=== PATIENT | male | born 1940 | race Caucasian/White ===

== ENCOUNTER 2017-10-14 05:29 | Inpatient (IN) | payer OTHER ==
[2017-10-14] MEDS ORDERED: Gabapentin 300 MG Cap PO ONE (06:00)
[2017-10-14] MEDS ORDERED: Scopolamine 1.5 MG Transdermal Patch TOP ONE (06:00)
[2017-10-14] MEDS: Lactated Ringers 1,000 ML IV SCH ×2 (06:38→13:35)
[2017-10-14] MEDS ORDERED: Gentamicin 40 MG/ML 2 ML Vial ONE (06:38)
[2017-10-14] MEDS ORDERED: Povidone-Iodine 10% Soln 118.25 ML Bottle ONE (06:38)
[2017-10-14] MEDS ORDERED: Vancomycin 1 GM SDV ONE (07:06)
[2017-10-14] MEDS ORDERED: Midazolam 1 MG/ML 2 ML SDV ONE ×3 (07:13→09:27)
[2017-10-14] MEDS ORDERED: fentaNYL 100 MCG/2 ML SDV ONE ×3 (07:13→10:04)
[2017-10-14] MEDS ORDERED: Propofol 200 MG/20 ML SDV ONE ×3 (07:13→08:29)
[2017-10-14] MEDS ORDERED: Clindamycin Phosphate 900 MG in Sodium Chloride 0.9% 100 ML IV ONE (07:30)
[2017-10-14] MEDS ORDERED: Ropivacaine 49.25 ML, Ketorolac 30 MG, EPINEPHrine 0.5 MG, cloNIDine 80 MCG, Sodium Chl... INJECT ONE ×5 (07:45)
[2017-10-14] MEDS ORDERED: Ketamine 500 MG/5 ML MDV IV SCH (07:45)
[2017-10-14] MEDS ORDERED: Alum Hydrox/Mag Hydrox/Simeth 360 ML, Lidocaine 2% 60 ML PO SCH ×2 (08:00)
[2017-10-14] MEDS ORDERED: Acetylcysteine 600 MG, Water For Injection,Sterile 57 ML ONE ×2 (08:00)
[2017-10-14] MEDS ORDERED: Lactated Ringers 1,000 ML ONE (08:20)
[2017-10-14] MEDS ORDERED: oxyCODONE 5 MG Tab PO PRN (10:29)
[2017-10-14] MEDS ORDERED: Sennosides 8.6 MG Tab PO PRN (10:29)
[2017-10-14] MEDS ORDERED: Naloxone 0.4 MG/ML SDV IVPUSH PRN ×2 (10:29→11:53)
[2017-10-14] MEDS ORDERED: traMADol 50 MG Tab PO PRN (10:29)
[2017-10-14] MEDS ORDERED: Morphine 2 MG/ML Syringe IVPUSH PRN (10:29)
[2017-10-14] MEDS ORDERED: Ketorolac 30 MG/ML SDV IVPUSH PRN (10:29)
[2017-10-14] MEDS ORDERED: Zolpidem 5 MG Tab PO PRN (10:29)
[2017-10-14] MEDS ORDERED: Magnesium Hydroxide 400 MG/5 ML Susp 30 ML Cup PO PRN (10:29)
[2017-10-14] MEDS ORDERED: diphenhydrAMINE 50 MG/ML SDV IVPUSH PRN ×2 (10:29→11:53)
[2017-10-14] MEDS ORDERED: Ondansetron 4 MG/2 ML SDV IVPUSH PRN (10:29)
[2017-10-14] MEDS ORDERED: Aluminum Hydroxide/Magnesium Hydroxide/Simethicone Susp 30 ML Cup PO PRN (10:29)
[2017-10-14] MEDS ORDERED: Bisacodyl 5 MG Tab PO PRN (10:29)
[2017-10-14] MEDS ORDERED: Albuterol 8 GM Inhaler INH PRN (10:33)
[2017-10-14] MEDS ORDERED: Ketoconazole 2% Crm 30 GM Tube TOP PRN (10:33)
[2017-10-14] MEDS ORDERED: tiZANidine 4 MG Tab PO PRN (10:33)
[2017-10-14] MEDS ORDERED: Acetaminophen 1,000 MG in Premix Bag 1 BAG IV ONE (10:40)
--- NOTE | 2017-10-14 12:22 | CR ---
Knee 1V or 2V Lt FINDINGS: The patient is status post knee arthroplasty. The prosthetic components appear well-aligned and seated. There is a small amount of air and fluid within the joint space. IMPRESSION: Status post knee arthroplasty without evidence for complication.
[2017-10-14] MEDS: oxyCODONE 5 MG Tab PO PRN ×2 (13:03→19:24)
--- NOTE | 2017-10-14 13:08 | OR ---
DATE OF PROCEDURE: 10/14/2017 PREOPERATIVE DIAGNOSIS: Left knee failed total knee arthroplasty. POSTOPERATIVE DIAGNOSIS: Left knee failed total knee arthroplasty. PROCEDURE: Left knee rotating hinge revision knee arthroplasty. SCRAP CARRIER: Jasmina Christensen NP. Physician budget assistant, Jasmina Christensen NP, played an essential role in assisting in this case, helping to position the patient, retract structures as needed, as well as suturing and cutting sutures as indicated. Her presence improved patient's safety and decreased operative time. ANESTHESIA: Spinal plus conscious sedation. FLUID: Lactated Ringer solution. ESTIMATED BLOOD LOSS: 150 mL. COMPLICATIONS: None. SPECIMEN: Anaerobic and anaerobic cultures. DISCHARGE DISPOSITION: Stable to PACU. INSTRUMENTATION: Cathy RH knee size E, rotating hinge femur size 5, rotating hinge tibia, two 15 mm distal augments, 23 mm rotating hinge polyethylene, and 18 x 145 femoral stem and a 15 x 30 tibial stem. INDICATIONS FOR PROCEDURE: The patient was seen preoperatively in the clinic. He had a primary total knee arthroplasty approximately 7 years ago, and 3 weeks after the procedure, he felt a pop and ever since has not done well. He did not see the surgeon afterwards. 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 I called him back in and also examined his MCL, which was not competent. Therefore, he was consented for the above procedure. Risks and benefits of the procedure were explained to the patient. Informed consent was obtained. DETAILS OF PROCEDURE: The patient was seen preoperatively by myself and the anesthesia staff in the preoperative holding area where the operative site was marked. He was brought to the operative suite by the anesthesia staff where spinal anesthesia plus conscious sedation was administered. A well-padded tourniquet was placed on the left thigh, and left lower extremity was then prepped and draped in a sterile manner. Time-out was called identifying the correct patient, correct procedure, the correct site, and antibiotics had begun within appropriate time. The left lower extremity was exsanguinated and tourniquet was raised to 300 mmHg for 111 minutes and let down during cementing. A midline incision was then made from the tibial tubercle approximately three and half fingerbreadths proximal to the patella down to the deep fascia. I then made a medial parapatellar arthrotomy and then exposed the medial tibia with the Bovie. Bleeding during the case was controlled with Bovie electrocautery and an Aquamantys unit. I then performed a full synovectomy, removed the infrapatellar fat pad, removed any extra bone overgrowth near the patella, as well as any soft tissue overgrowth. I then removed the polyethylene, and then using a reciprocating saw, I undermined the femoral and tibial components and then tapped those out. After that had been accomplished, I then took my time to remove any extra cement within the tibial canal. I then sequentially reamed from 9 to 15 mm reaming in the tibia. I then left that in and then applied my extramedullary guide and took approximately 2 mm of proximal tibia with the saw. After that had been accomplished, I applied the tibial base plate and then prepped tibia with reaming and broach. We then inserted a trial tibia which had a good fit. I then applied a trial E femur, which appeared to have a good fit. We then reamed the femur from 9 to 18 mm and then leaving the reamer in, applied our extramedullary distal femoral cutting guide, cut approximately 2 mm off, then applied E chamfer block, tapped that in place with rotation with the epicondylar axis, and then made my anterior-posterior chamfer cuts. I then applied my tibia with a stem trial and poly. We then trailed up to about a 20, and during this time, we put on distal augments of 10 on the femur. We did not have 15 augments but felt this was going to be a good fit, so we then removed all of our components and then copiously irrigated with saline. I applied some iodine, washed off the trial components because we used the final femoral components, and then, we cemented the tibia in place first and then cemented the femur in place and applied a 23 polyethylene which provided excellent stability. We then allowed the cement to cure in full extension with warm water and let down the tourniquet at 111 minutes. We then used the Bovie and Aquamantys unit to control some extra bleeding. After the cement had dried, we removed our polyethylene trial, and copiously irrigated with saline and then removed any extra cement. Then, we then applied our final polyethylene 23 mm, which provided excellent range of motion with full extension and 135 degrees of flexion and then closed with two #5 Ethibond and 3-0 Stratafix and skin ivan. A sterile dressing was placed and the patient was transferred to his hospital bed, and then taken to the PACU in stable condition. Kyle Schilling DO /[id number]
[2017-10-14] MEDS: Gabapentin 300 MG Cap PO SCH ×2 (13:57→21:47)
[2017-10-14] MEDS ORDERED: POTASSIUM CHLORIDE 30 MEQ PO SCH ×2 (14:00)
[2017-10-14] MEDS: Clindamycin Phosphate 600 MG in Sodium Chloride 0.9% 100 ML IV SCH ×2 (15:23→19:29)
[2017-10-14] MEDS: Ketorolac 30 MG/ML SDV IVPUSH PRN (15:59)
[2017-10-14] MEDS: Potassium Chloride 10 MEQ Cap.ER PO SCH (17:46)
[2017-10-14] MEDS ORDERED: Docusate Sodium 100 MG Cap PO SCH (21:00)
[2017-10-14] MEDS ORDERED: Sennosides 8.6 MG Tab PO SCH (21:00)
[2017-10-14] MEDS ORDERED: Non-Formulary Medication 1 Each (Cholecalciferol (Vitamin D3) [Vitamin D3] 1 TAB) PO SCH ×2 (21:00)
[2017-10-14] MEDS ORDERED: Doxycycline 100 MG Cap PO SCH ×2 (21:00)
[2017-10-14] MEDS: Cholecalciferol (Vitamin D3) 1,000 Unit Tab PO SCH (21:46)
[2017-10-14] MEDS: DOXYCYCLINE 50 MG PO SCH (21:47)
[2017-10-14] MEDS: Sennosides 8.6 MG Tab PO SCH (21:47)
[2017-10-14] MEDS: Docusate Sodium 100 MG Cap PO SCH (21:47)
[2017-10-15] MEDS: Clindamycin Phosphate 600 MG in Sodium Chloride 0.9% 100 ML IV SCH (01:20)
[2017-10-15] MEDS: oxyCODONE 5 MG Tab PO PRN ×2 (02:33→08:20)
[2017-10-15] MEDS: Potassium Chloride 10 MEQ Cap.ER PO SCH ×3 (07:32→17:02)
[2017-10-15] MEDS: Levothyroxine 75 MCG Tab PO SCH (07:32)
[2017-10-15] MEDS: Pantoprazole 40 MG Tab.CR PO SCH (07:32)
[2017-10-15] MEDS: Docusate Sodium 100 MG Cap PO SCH ×2 (08:17→21:51)
[2017-10-15] MEDS: Bisacodyl 5 MG Tab PO SCH (08:17)
[2017-10-15] MEDS: Loratadine 10 MG Tab PO SCH (08:17)
[2017-10-15] MEDS: Hydrocortisone 2.5% Crm 30 GM Tube TOP SCH (08:18)
[2017-10-15] MEDS: Aspirin 325 MG Tab.EC PO SCH (08:18)
[2017-10-15] MEDS: Gabapentin 300 MG Cap PO SCH ×3 (08:19→21:52)
[2017-10-15] MEDS: Finasteride 5 MG Tab PO SCH (08:21)
[2017-10-15] MEDS: DOXYCYCLINE 50 MG PO SCH ×2 (08:21→22:53)
[2017-10-15] MEDS: Sodium Chloride 0.9% 10 ML Syringe FLUSH SCH (08:22)
[2017-10-15] MEDS: Sennosides 8.6 MG Tab PO SCH ×2 (08:22→21:51)
[2017-10-15] MEDS: Atenolol 50 MG Tab PO SCH (08:22)
[2017-10-15] MEDS: Cyanocobalamin (Vitamin B12) 1,000 MCG Tab PO SCH (08:23)
[2017-10-15] MEDS: Multivitamins with Iron/Calcium/Folic Acid/Minerals Tab PO SCH (08:23)
[2017-10-15] MEDS: Cholecalciferol (Vitamin D3) 1,000 Unit Tab PO SCH ×2 (08:23→21:51)
[2017-10-15] MEDS ORDERED: Non-Formulary Medication 1 Each (Multivitamin With Minerals [Multiple Vitamin] 1 TAB) PO SCH ×2 (09:00)
[2017-10-15] MEDS ORDERED: Sodium Chloride 0.9% 10 ML Syringe FLUSH SCH (09:00)
[2017-10-15] MEDS ORDERED: FEXOFENADINE PO SCH ×2 (09:00)
[2017-10-15] MEDS ORDERED: Bisacodyl 5 MG Tab PO SCH (09:00)
[2017-10-15] MEDS ORDERED: LANSOPRAZOLE PO SCH ×2 (09:00)
[2017-10-15] MEDS ORDERED: Melatonin 3 MG Tab PO PRN (09:54)
[2017-10-15] MEDS ORDERED: Aspirin 325 MG Tab.EC PO SCH (10:29)
[2017-10-15] MEDS: Acetaminophen/oxyCODONE 325-5 MG Tab PO PRN (11:44)
[2017-10-15] MEDS: traMADol 50 MG Tab PO PRN ×2 (14:13→21:54)
[2017-10-15] MEDS: Tamsulosin 0.4 MG Cap.ER PO SCH (17:02)
[2017-10-16] MEDS: Levothyroxine 75 MCG Tab PO SCH (08:30)
[2017-10-16] MEDS: Loratadine 10 MG Tab PO SCH (08:31)
[2017-10-16] MEDS: Potassium Chloride 10 MEQ Cap.ER PO SCH ×3 (08:31→16:57)
[2017-10-16] MEDS: Pantoprazole 40 MG Tab.CR PO SCH (08:31)
[2017-10-16] MEDS: Tamsulosin 0.4 MG Cap.ER PO SCH ×2 (08:31→16:57)
[2017-10-16] MEDS: traMADol 50 MG Tab PO PRN (08:40)
[2017-10-16] MEDS: Docusate Sodium 100 MG Cap PO SCH ×2 (08:41→20:34)
[2017-10-16] MEDS: Aspirin 325 MG Tab.EC PO SCH (08:42)
[2017-10-16] MEDS: Bisacodyl 5 MG Tab PO SCH (08:42)
[2017-10-16] MEDS: Finasteride 5 MG Tab PO SCH (08:44)
[2017-10-16] MEDS: Gabapentin 300 MG Cap PO SCH ×3 (08:44→20:34)
[2017-10-16] MEDS: Sodium Chloride 0.9% 10 ML Syringe FLUSH SCH (08:45)
[2017-10-16] MEDS: Sennosides 8.6 MG Tab PO SCH ×2 (08:46→20:34)
[2017-10-16] MEDS: Cholecalciferol (Vitamin D3) 1,000 Unit Tab PO SCH ×2 (08:47→20:35)
[2017-10-16] MEDS: Cyanocobalamin (Vitamin B12) 1,000 MCG Tab PO SCH (08:47)
[2017-10-16] MEDS: Atenolol 50 MG Tab PO SCH (08:47)
[2017-10-16] MEDS: Multivitamins with Iron/Calcium/Folic Acid/Minerals Tab PO SCH (08:47)
[2017-10-16] MEDS: Hydrocortisone 2.5% Crm 30 GM Tube TOP SCH (09:10)
[2017-10-16] MEDS: DOXYCYCLINE 50 MG PO SCH (09:47)
--- NOTE | 2017-10-16 13:30 | PCM.PN ---
- General Info Date of Service: 10/15/17 Admission Dx/Problem (Free Text): patient is status postop day 1 of a knee revision. He is doing very well. He continues to have his Covarrubias which I would like removed today. He is ambulating short distances at this time. He has no nausea. His pain is under control with oral pain medication. Functional Status: Reports: Pain Controlled, Tolerating Diet, Ambulating, Urinating - Patient Data Vitals - Most Recent: Last Vital Signs Temp 38.1 C 10/16/17 11:05 Pulse 94 10/16/17 11:05 Resp 25 H 10/16/17 11:05 BP 111/73 10/16/17 08:47 Pulse Ox 94 L 10/16/17 11:05 Weight - Most Recent: 229 lb 15.991 oz I&O - Last 24 Hours: Intake & Output 10/15/17 10/16/17 10/16/17 22:59 06:59 14:59 Intake Total 780 454 0011 Output Total 450 250 350 Balance 170 250 790 Pawel Results Last 24 Hours: Microbiology 10/14/17 09:43 Gram Stain - Final Knee, Left Wound Culture - Preliminary NO GROWTH AFTER 2 DAYS Med Orders - Current: Current Medications Al Hydroxide/Mg Hydroxide (Mag-Al Plus) 30 ml PO Q4H PRN PRN Reason: Constipation Albuterol (Ventolin Hfa) 0 gm INH BID PRN PRN Reason: Shortness of Breath Aspirin (Ecotrin) 325 mg PO DAILY [facility] Last Admin: 10/16/17 08:42 Dose: 325 mg Atenolol (Tenormin) 50 mg PO DAILY [facility] Last Admin: 10/16/17 08:47 Dose: 50 mg Bisacodyl (Dulcolax) 10 mg PO DAILY [facility] Last Admin: 10/16/17 08:42 Dose: 10 mg Cholecalciferol (Vitamin D3) 2,000 units PO BID [facility] Last Admin: 10/16/17 08:47 Dose: 2,000 units Cyanocobalamin (Vitamin B12) 1,000 mcg PO DAILY [facility] Last Admin: 10/16/17 08:47 Dose: 1,000 mcg Diphenhydramine HCl (Benadryl) 25 mg IVPUSH Q4H PRN PRN Reason: Itching Docusate Sodium (Colace) 100 mg PO BID [facility] Last Admin: 10/16/17 08:41 Dose: 100 mg Finasteride (Proscar) 5 mg PO DAILY [facility] Last Admin: 10/16/17 08:44 Dose: 5 mg Gabapentin (Neurontin) 900 mg PO TID [facility] Last Admin: 10/16/17 13:18 Dose: 900 mg Hydrocortisone (Hydrocortisone 2.5% Crm) 0 gm TOP DAILY [facility] Last Admin: 10/16/17 09:10 Dose: 1 applic Lactated Ringer's (Ringers, Lactated) 1,000 mls @ 100 mls/hr IV ASDIRECTED [facility] Last Admin: 10/14/17 13:35 Dose: 100 mls/hr Ketoconazole (Nizoral 2% Crm) 0 gm TOP ASDIRECTED PRN PRN Reason: Itching Ketorolac Tromethamine (Toradol) 15 mg IVPUSH Q8H PRN PRN Reason: Pain Stop: 10/19/17 10:29 Last Admin: 10/14/17 15:59 Dose: 15 mg Levothyroxine Sodium (Levothyroxine) 75 mcg PO ACBREAKFAST [facility] Last Admin: 10/16/17 08:30 Dose: 75 mcg Loratadine (Claritin) 10 mg PO DAILY [facility] Last Admin: 10/16/17 08:31 Dose: 10 mg Magnesium Hydroxide (Milk Of Magnesia) 30 ml PO BID PRN PRN Reason: Constipation Melatonin (Melatonin) 9 mg PO BEDTIME PRN PRN Reason: Sleep Metronidazole (Metronidazole 0.75% Cream) 0 gm TOP BID PRN PRN Reason: Itching Morphine Sulfate (Morphine) 2 mg IVPUSH Q2H PRN PRN Reason: Pain Multivitamins/Minerals (Thera M Plus) 1 tab PO DAILY [facility] Last Admin: 10/16/17 08:47 Dose: 1 tab Doxycycline 50mg Cap 0 each PO BID [facility] Last Admin: 10/16/17 09:47 Dose: 1 each Ondansetron HCl (Zofran) 8 mg IVPUSH Q4H PRN PRN Reason: Nausea/Vomiting Oxycodone/Acetaminophen (Percocet 325-5 Mg) 2 tab PO Q4H PRN PRN Reason: Pain Last Admin: 10/15/17 11:44 Dose: 2 tab Pantoprazole Sodium (Protonix) 40 mg PO ACBREAKFAST [facility] Last Admin: 10/16/17 08:31 Dose: 40 mg Potassium Chloride (Potassium Chloride) 30 meq PO TIDMEALS [facility] Last Admin: 10/16/17 11:54 Dose: 30 meq Senna (Senna) 8.6 mg PO BID [facility] Last Admin: 10/16/17 08:46 Dose: 8.6 mg Sodium Chloride (Saline Flush) 10 ml FLUSH DAILY [facility] Last Admin: 10/16/17 08:45 Dose: 10 ml [facility] Last Admin: 10/16/17 08:31 Dose: 0.4 mg Tizanidine HCl (Zanaflex) 4 mg PO BID PRN PRN Reason: Muscle Spasm Tramadol HCl (Ultram) 100 mg PO Q6H PRN PRN Reason: Pain Last Admin: 10/16/17 08:40 Dose: 100 mg Discontinued Medications Aspirin (Ecotrin) 325 mg PO DAILY [facility] Bisacodyl (Dulcolax) 10 mg PO DAILY PRN PRN Reason: Constipation Bisacodyl (Dulcolax) 10 mg PO DAILY [facility] Ropivacaine 49.25 ml/Ketorolac Tromethamine 30 mg/Epinephrine HCl 0.5 mg/ Clonidine HCl 80 mcg/ Sodium Chloride 48.45 ml 0 ml INJECT ONETIME ONE Stop: 10/14/17 07:46 Last Admin: 10/14/17 08:13 Dose: 100 ml Diphenhydramine HCl (Benadryl) 25 mg IVPUSH Q4H PRN PRN Reason: Itching Docusate Sodium (Colace) 100 mg PO BID [facility] Doxycycline Hyclate (Vibramycin) 50 mg PO BID [facility] Fentanyl (Sublimaze) Confirm Administered Dose 100 mcg .ROUTE .STK-MED ONE Stop: 10/14/17 07:14 Fentanyl (Sublimaze) Confirm Administered Dose 100 mcg .ROUTE .STK-MED ONE Stop: 10/14/17 09:48 Fentanyl (Sublimaze) Confirm Administered Dose 100 mcg .ROUTE .STK-MED ONE Stop: 10/14/17 10:05 Gabapentin (Neurontin) 300 mg PO ONETIME ONE Stop: 10/14/17 06:01 Last Admin: 10/14/17 05:54 Dose: 300 mg Gentamicin Sulfate (Gentamicin) Confirm Administered Dose 240 mg .ROUTE .STK- MED ONE Stop: 10/14/17 06:39 Last Admin: 10/14/17 08:01 Dose: 240 mg Clindamycin Phosphate 900 mg/ (Sodium Chloride) 106 mls @ 200 mls/hr IV ONETIME ONE Stop: 10/14/17 08:01 Last Admin: 10/14/17 07:20 Dose: 200 mls/hr Lactated Ringer's (Ringers, Lactated) Confirm Administered Dose 1,000 mls @ as directed .ROUTE .STK-MED ONE Stop: 10/14/17 08:21 Acetaminophen 1,000 mg/ Premix 100 mls @ 400 mls/hr IV NOW ONE Stop: 10/14/17 10:54 Last Admin: 10/14/17 10:41 Dose: 400 mls/hr Clindamycin Phosphate 600 mg/ (Sodium Chloride) 54 mls @ 100 mls/hr IV Q6H [facility] Stop: 10/14/17 23:03 Last Admin: 10/14/17 19:45 Dose: Not Given Clindamycin Phosphate 600 mg/ (Sodium Chloride) 104 mls @ 192.593 mls/hr IV Q6H [facility] Stop: 10/15/17 01:33 Last Admin: 10/15/17 01:20 Dose: 192.593 mls/hr Ketamine HCl (Ketalar) 35 mg IV ASDIRECTED [facility] Ketorolac Tromethamine (Toradol) 15 mg IVPUSH Q8H PRN PRN Reason: Pain Stop: 10/19/17 10:29 Midazolam HCl (Versed 1 Mg/Ml) Confirm Administered Dose 2 mg .ROUTE .STK-MED ONE Stop: 10/14/17 07:14 Midazolam HCl (Versed 1 Mg/Ml) Confirm Administered Dose 2 mg .ROUTE .STK-MED ONE Stop: 10/14/17 08:20 Midazolam HCl (Versed 1 Mg/Ml) Confirm Administered Dose 2 mg .ROUTE .STK-MED ONE Stop: 10/14/17 09:28 Naloxone HCl (Narcan) 0.1 mg IVPUSH ONETIME PRN PRN Reason: Oversedation Naloxone HCl (Narcan) 0.1 mg IVPUSH ASDIRECTED PRN PRN Reason: Oversedation Stop: 10/15/17 02:00 Non-Formulary Medication (Cholecalciferol (Vitamin D3) [Vitamin D3]) 1 tab PO BID [facility] Non-Formulary Medication (Fexofenadine [Liv]) 1 tab PO DAILY [facility] Non-Formulary Medication (Lansoprazole [Prevacid]) 1 cap PO DAILY [facility] Non-Formulary Medication (Multivitamin With Minerals [Multiple Vitamin]) 1 tab PO DAILY [facility] Non-Formulary Medication (Potassium Chloride [Klor-Con 10]) 30 meq PO TID [facility] Oxycodone HCl (Oxycodone) 10 mg PO Q4H PRN PRN Reason: Pain Stop: 10/15/17 10:29 Oxycodone HCl (Oxycodone) 10 mg PO Q4H PRN PRN Reason: Pain Stop: 10/15/17 10:29 Last Admin: 10/15/17 08:20 Dose: 10 mg Povidone Iodine (Betadine 10% Soln) Confirm Administered Dose 1 ml .ROUTE .STK- MED ONE Stop: 10/14/17 06:39 Last Admin: 10/14/17 08:02 Dose: 40 ml Propofol (Diprivan 20 Ml) Confirm Administered Dose 200 mg .ROUTE .STK-MED ONE Stop: 10/14/17 07:14 Propofol (Diprivan 20 Ml) Confirm Administered Dose 200 mg .ROUTE .STK-MED ONE Stop: 10/14/17 08:19 Propofol (Diprivan 20 Ml) Confirm Administered Dose 200 mg .ROUTE .STK-MED ONE Stop: 10/14/17 08:30 Scopolamine (Transderm-Scop) 1.5 mg TOP ONETIME ONE Stop: 10/14/17 06:01 Last Admin: 10/14/17 05:54 Dose: 1.5 mg Senna (Senna) 8.6 mg PO BID PRN PRN Reason: Constipation Senna (Senna) 8.6 mg PO BID [facility] Sodium Chloride (Saline Flush) 10 ml FLUSH DAILY [facility] Tramadol HCl (Ultram) 100 mg PO Q6H PRN PRN Reason: Pain Vancomycin HCl (Vancomycin) Confirm Administered Dose 2 gm .ROUTE .STK-MED ONE Stop: 10/14/17 07:07 Last Admin: 10/14/17 08:01 Dose: 1 gm Zolpidem Tartrate (Ambien) 5 mg PO BEDTIME PRN PRN Reason: Sleep - Exam General: Alert, Oriented Extremities: Normal Inspection, No Pedal Edema, Normal Capillary Refill, Joint Swelling, Limited Range of Motion Peripheral Pulses: 2+: Dorsalis Pedis (L), Dorsalis Pedis (R) Skin: Warm, Dry, Intact Wound/Incisions: Healing Well, Dressing Dry and Intact Neurological: No New Focal Deficit Psy/Mental Status: Alert - Problem List Review Problem List Initiated/Reviewed/Updated: Yes - My Orders Last 24 Hours: My Active Orders 10/15/17 17:30 Tamsulosin [Flomax] 0.4 mg PO BIDPC - Plan Plan:: At this time patient will continue with PT OT. He will plan to discharge in the next few days. We'll put his Covarrubias out today and have them ambulating as much as possible. We will continue with oral pain medication.
--- NOTE | 2017-10-16 13:32 | PCM.PN ---
- General Info Date of Service: 10/16/17 Admission Dx/Problem (Free Text): Patient is status postop day 2 of a knee revision. He is doing very well. Patient continues to ambulate. He is still concerned with having the strength to go home today. He will continue to improve. - Patient Data Vitals - Most Recent: Last Vital Signs Temp 38.1 C 10/16/17 11:05 Pulse 94 10/16/17 11:05 Resp 25 H 10/16/17 11:05 BP 111/73 10/16/17 08:47 Pulse Ox 94 L 10/16/17 11:05 Weight - Most Recent: 229 lb 15.991 oz I&O - Last 24 Hours: Intake & Output 10/15/17 10/16/17 10/16/17 22:59 06:59 14:59 Intake Total 889 760 7444 Output Total 450 250 350 Balance 170 250 790 Pawel Results Last 24 Hours: Microbiology 10/14/17 09:43 Gram Stain - Final Knee, Left Wound Culture - Preliminary NO GROWTH AFTER 2 DAYS Med Orders - Current: Current Medications Al Hydroxide/Mg Hydroxide (Mag-Al Plus) 30 ml PO Q4H PRN PRN Reason: Constipation Albuterol (Ventolin Hfa) 0 gm INH BID PRN PRN Reason: Shortness of Breath Aspirin (Ecotrin) 325 mg PO DAILY [facility] Last Admin: 10/16/17 08:42 Dose: 325 mg Atenolol (Tenormin) 50 mg PO DAILY [facility] Last Admin: 10/16/17 08:47 Dose: 50 mg Bisacodyl (Dulcolax) 10 mg PO DAILY [facility] Last Admin: 10/16/17 08:42 Dose: 10 mg Cholecalciferol (Vitamin D3) 2,000 units PO BID [facility] Last Admin: 10/16/17 08:47 Dose: 2,000 units Cyanocobalamin (Vitamin B12) 1,000 mcg PO DAILY [facility] Last Admin: 10/16/17 08:47 Dose: 1,000 mcg Diphenhydramine HCl (Benadryl) 25 mg IVPUSH Q4H PRN PRN Reason: Itching Docusate Sodium (Colace) 100 mg PO BID [facility] Last Admin: 10/16/17 08:41 Dose: 100 mg Finasteride (Proscar) 5 mg PO DAILY [facility] Last Admin: 10/16/17 08:44 Dose: 5 mg Gabapentin (Neurontin) 900 mg PO TID [facility] Last Admin: 10/16/17 13:18 Dose: 900 mg Hydrocortisone (Hydrocortisone 2.5% Crm) 0 gm TOP DAILY [facility] Last Admin: 10/16/17 09:10 Dose: 1 applic Lactated Ringer's (Ringers, Lactated) 1,000 mls @ 100 mls/hr IV ASDIRECTED [facility] Last Admin: 10/14/17 13:35 Dose: 100 mls/hr Ketoconazole (Nizoral 2% Crm) 0 gm TOP ASDIRECTED PRN PRN Reason: Itching Ketorolac Tromethamine (Toradol) 15 mg IVPUSH Q8H PRN PRN Reason: Pain Stop: 10/19/17 10:29 Last Admin: 10/14/17 15:59 Dose: 15 mg Levothyroxine Sodium (Levothyroxine) 75 mcg PO ACBREAKFAST [facility] Last Admin: 10/16/17 08:30 Dose: 75 mcg Loratadine (Claritin) 10 mg PO DAILY [facility] Last Admin: 10/16/17 08:31 Dose: 10 mg Magnesium Hydroxide (Milk Of Magnesia) 30 ml PO BID PRN PRN Reason: Constipation Melatonin (Melatonin) 9 mg PO BEDTIME PRN PRN Reason: Sleep Metronidazole (Metronidazole 0.75% Cream) 0 gm TOP BID PRN PRN Reason: Itching Morphine Sulfate (Morphine) 2 mg IVPUSH Q2H PRN PRN Reason: Pain Multivitamins/Minerals (Thera M Plus) 1 tab PO DAILY [facility] Last Admin: 10/16/17 08:47 Dose: 1 tab Doxycycline 50mg Cap 0 each PO BID [facility] Last Admin: 10/16/17 09:47 Dose: 1 each Ondansetron HCl (Zofran) 8 mg IVPUSH Q4H PRN PRN Reason: Nausea/Vomiting Oxycodone/Acetaminophen (Percocet 325-5 Mg) 2 tab PO Q4H PRN PRN Reason: Pain Last Admin: 10/15/17 11:44 Dose: 2 tab Pantoprazole Sodium (Protonix) 40 mg PO ACBREAKFAST [facility] Last Admin: 10/16/17 08:31 Dose: 40 mg Potassium Chloride (Potassium Chloride) 30 meq PO TIDMEALS [facility] Last Admin: 10/16/17 11:54 Dose: 30 meq Senna (Senna) 8.6 mg PO BID [facility] Last Admin: 10/16/17 08:46 Dose: 8.6 mg Sodium Chloride (Saline Flush) 10 ml FLUSH DAILY [facility] Last Admin: 10/16/17 08:45 Dose: 10 ml [facility]ams[facility]osin [facility] ([facility]) [facility] Last Admin: 10/16/17 08:31 Dose: 0.4 mg Tizanidine HCl (Zanaflex) 4 mg PO BID PRN PRN Reason: Muscle Spasm Tramadol HCl (Ultram) 100 mg PO Q6H PRN PRN Reason: Pain Last Admin: 10/16/17 08:40 Dose: 100 mg Discontinued Medications Aspirin (Ecotrin) 325 mg PO DAILY [facility] Bisacodyl (Dulcolax) 10 mg PO DAILY PRN PRN Reason: Constipation Bisacodyl (Dulcolax) 10 mg PO DAILY [facility] Ropivacaine 49.25 ml/Ketorolac Tromethamine 30 mg/Epinephrine HCl 0.5 mg/ Clonidine HCl 80 mcg/ Sodium Chloride 48.45 ml 0 ml INJECT ONETIME ONE Stop: 10/14/17 07:46 Last Admin: 10/14/17 08:13 Dose: 100 ml Diphenhydramine HCl (Benadryl) 25 mg IVPUSH Q4H PRN PRN Reason: Itching Docusate Sodium (Colace) 100 mg PO BID [facility] Doxycycline Hyclate (Vibramycin) 50 mg PO BID [facility] Fentanyl (Sublimaze) Confirm Administered Dose 100 mcg .ROUTE .STK-MED ONE Stop: 10/14/17 07:14 Fentanyl (Sublimaze) Confirm Administered Dose 100 mcg .ROUTE .STK-MED ONE Stop: 10/14/17 09:48 Fentanyl (Sublimaze) Confirm Administered Dose 100 mcg .ROUTE .STK-MED ONE Stop: 10/14/17 10:05 Gabapentin (Neurontin) 300 mg PO ONETIME ONE Stop: 10/14/17 06:01 Last Admin: 10/14/17 05:54 Dose: 300 mg Gentamicin Sulfate (Gentamicin) Confirm Administered Dose 240 mg .ROUTE .STK- MED ONE Stop: 10/14/17 06:39 Last Admin: 10/14/17 08:01 Dose: 240 mg Clindamycin Phosphate 900 mg/ (Sodium Chloride) 106 mls @ 200 mls/hr IV ONETIME ONE Stop: 10/14/17 08:01 Last Admin: 10/14/17 07:20 Dose: 200 mls/hr Lactated Ringer's (Ringers, Lactated) Confirm Administered Dose 1,000 mls @ as directed .ROUTE .STK-MED ONE Stop: 10/14/17 08:21 Acetaminophen 1,000 mg/ Premix 100 mls @ 400 mls/hr IV NOW ONE Stop: 10/14/17 10:54 Last Admin: 10/14/17 10:41 Dose: 400 mls/hr Clindamycin Phosphate 600 mg/ (Sodium Chloride) 54 mls @ 100 mls/hr IV Q6H [facility] Stop: 10/14/17 23:03 Last Admin: 10/14/17 19:45 Dose: Not Given Clindamycin Phosphate 600 mg/ (Sodium Chloride) 104 mls @ 192.593 mls/hr IV Q6H [facility] Stop: 10/15/17 01:33 Last Admin: 10/15/17 01:20 Dose: 192.593 mls/hr Ketamine HCl (Ketalar) 35 mg IV ASDIRECTED [facility] Ketorolac Tromethamine (Toradol) 15 mg IVPUSH Q8H PRN PRN Reason: Pain Stop: 10/19/17 10:29 Midazolam HCl (Versed 1 Mg/Ml) Confirm Administered Dose 2 mg .ROUTE .STK-MED ONE Stop: 10/14/17 07:14 Midazolam HCl (Versed 1 Mg/Ml) Confirm Administered Dose 2 mg .ROUTE .STK-MED ONE Stop: 10/14/17 08:20 Midazolam HCl (Versed 1 Mg/Ml) Confirm Administered Dose 2 mg .ROUTE .STK-MED ONE Stop: 10/14/17 09:28 Naloxone HCl (Narcan) 0.1 mg IVPUSH ONETIME PRN PRN Reason: Oversedation Naloxone HCl (Narcan) 0.1 mg IVPUSH ASDIRECTED PRN PRN Reason: Oversedation Stop: 10/15/17 02:00 Non-Formulary Medication (Cholecalciferol (Vitamin D3) [Vitamin D3]) 1 tab PO BID [facility] Non-Formulary Medication (Fexofenadine [Liv]) 1 tab PO DAILY [facility] Non-Formulary Medication (Lansoprazole [Prevacid]) 1 cap PO DAILY [facility] Non-Formulary Medication (Multivitamin With Minerals [Multiple Vitamin]) 1 tab PO DAILY [facility] Non-Formulary Medication (Potassium Chloride [Klor-Con 10]) 30 meq PO TID [facility] Oxycodone HCl (Oxycodone) 10 mg PO Q4H PRN PRN Reason: Pain Stop: 10/15/17 10:29 Oxycodone HCl (Oxycodone) 10 mg PO Q4H PRN PRN Reason: Pain Stop: 10/15/17 10:29 Last Admin: 10/15/17 08:20 Dose: 10 mg Povidone Iodine (Betadine 10% Soln) Confirm Administered Dose 1 ml .ROUTE .STK- MED ONE Stop: 10/14/17 06:39 Last Admin: 10/14/17 08:02 Dose: 40 ml Propofol (Diprivan 20 Ml) Confirm Administered Dose 200 mg .ROUTE .STK-MED ONE Stop: 10/14/17 07:14 Propofol (Diprivan 20 Ml) Confirm Administered Dose 200 mg .ROUTE .STK-MED ONE Stop: 10/14/17 08:19 Propofol (Diprivan 20 Ml) Confirm Administered Dose 200 mg .ROUTE .STK-MED ONE Stop: 10/14/17 08:30 Scopolamine (Transderm-Scop) 1.5 mg TOP ONETIME ONE Stop: 10/14/17 06:01 Last Admin: 10/14/17 05:54 Dose: 1.5 mg Senna (Senna) 8.6 mg PO BID PRN PRN Reason: Constipation Senna (Senna) 8.6 mg PO BID [facility] Sodium Chloride (Saline Flush) 10 ml FLUSH DAILY [facility] Tramadol HCl (Ultram) 100 mg PO Q6H PRN PRN Reason: Pain Vancomycin HCl (Vancomycin) Confirm Administered Dose 2 gm .ROUTE .STK-MED ONE Stop: 10/14/17 07:07 Last Admin: 10/14/17 08:01 Dose: 1 gm Zolpidem Tartrate (Ambien) 5 mg PO BEDTIME PRN PRN Reason: Sleep - Exam General: Alert, Oriented Extremities: Normal Inspection, No Pedal Edema, Normal Capillary Refill, Joint Swelling, Limited Range of Motion Peripheral Pulses: 2+: Dorsalis Pedis (L), Dorsalis Pedis (R) Skin: Warm, Dry, Intact Wound/Incisions: Healing Well, Dressing Dry and Intact Neurological: No New Focal Deficit Psy/Mental Status: Alert - Problem List Review Problem List Initiated/Reviewed/Updated: Yes - My Orders Last 24 Hours: My Active Orders 10/15/17 17:30 Tamsulosin [Flomax] 0.4 mg PO BIDPC - Plan Plan:: I will have the continue with PT OT at this time. He will be discharged tomorrow. We will continue with oral pain medication. He will continue to be monitored for urine output. I would like him to continue with oral stool softeners.
[2017-10-16] MEDS: Acetaminophen/oxyCODONE 325-5 MG Tab PO PRN (16:55)
[2017-10-16] MEDS: Ketorolac 30 MG/ML SDV IVPUSH PRN (19:57)
[2017-10-17] MEDS: Tamsulosin 0.4 MG Cap.ER PO SCH (07:36)
[2017-10-17] MEDS: Potassium Chloride 10 MEQ Cap.ER PO SCH ×2 (07:36→13:09)
[2017-10-17] MEDS: Levothyroxine 75 MCG Tab PO SCH (07:36)
[2017-10-17] MEDS: Pantoprazole 40 MG Tab.CR PO SCH (07:36)
[2017-10-17] MEDS: Acetaminophen/oxyCODONE 325-5 MG Tab PO PRN ×2 (07:38→13:10)
[2017-10-17] MEDS: Aspirin 325 MG Tab.EC PO SCH (08:59)
[2017-10-17] MEDS: Docusate Sodium 100 MG Cap PO SCH (08:59)
[2017-10-17] MEDS: Hydrocortisone 2.5% Crm 30 GM Tube TOP SCH (08:59)
[2017-10-17] MEDS: Loratadine 10 MG Tab PO SCH (08:59)
[2017-10-17] MEDS: Bisacodyl 5 MG Tab PO SCH (08:59)
[2017-10-17] MEDS: Gabapentin 300 MG Cap PO SCH (09:00)
[2017-10-17] MEDS: Sennosides 8.6 MG Tab PO SCH (09:00)
[2017-10-17] MEDS: Finasteride 5 MG Tab PO SCH (09:00)
[2017-10-17] MEDS: Cholecalciferol (Vitamin D3) 1,000 Unit Tab PO SCH (09:01)
[2017-10-17] MEDS: Multivitamins with Iron/Calcium/Folic Acid/Minerals Tab PO SCH (09:01)
[2017-10-17] MEDS: Cyanocobalamin (Vitamin B12) 1,000 MCG Tab PO SCH (09:01)
[2017-10-17] MEDS: Atenolol 50 MG Tab PO SCH (09:06)
[2017-10-17] MEDS: Sodium Chloride 0.9% 10 ML Syringe FLUSH SCH (09:56)
[2017-10-17 10:28] VITALS: BP 100/60
--- NOTE | 2017-11-03 09:53 | PCM.DCSUM1 ---
Discharge Summary - Hospital Course Free Text/Narrative:: Patient is status post day 3 of a left knee revision. He is doing very well. Patient has no pain at this time. Is ablated without any difficulties. - Discharge Data Discharge Date: 10/17/17 Discharge Disposition: Home, Self-Care 01 Condition: Good - Patient Summary/Data Consults: Consultations 10/14/17 10:29 OT Evaluation and Treatment [CONS] Routine Please Evaluate and Treat. OT Reason for Consult: Strengthening This query below is only for informational purposes and is not editable. PT Evaluation and Treatment [CONS] Routine Please Evaluate and Treat. PT Reason for Consult: Strengthening This query below is only for informational purposes and is not editable. - Patient Instructions Diet: Usual Diet as Tolerated Activity: Apply Ice, As Tolerated Driving: Do Not Drive Showering/Bathing: May Shower, No Tub Bathing/Swimming Wound/Incision Care: Keep Operative Site/Wound Site Clean and Dry, Change Dressing Daily Notify Provider of: Fever, Increased Pain, Swelling and Redness, Drainage - Discharge Plan Prescriptions/Med Rec: Acetaminophen/oxyCODONE [Percocet 325-5 MG] 1 tab PO Q6HR PRN 90 Days tablet PRN Reason: Pain Aspirin [Ecotrin] 325 mg PO DAILY #30 tab.ec Home Medications: Home Meds Acetaminophen 1 tab PO Q6H PRN 11/26/16 [History] Albuterol Sulfate [Proair Hfa] 2 puff INH BID PRN 11/26/16 [History] Atenolol [Tenormin] 1 tab PO DAILY 11/26/16 [History] Cholecalciferol (Vitamin D3) [Vitamin D3] 1 tab PO BID 11/26/16 [History] Doxycycline Calcium [IMW: Doxycycline] 50 mg PO BID 11/26/16 [History] Fexofenadine [Liv] 1 tab PO DAILY 11/26/16 [History] Finasteride [Proscar] 1 tab PO DAILY 11/26/16 [History] Gabapentin [Neurontin] 3 cap PO TID 11/26/16 [History] Ketoconazole [Nizoral 2% Crm] 1 appful TOP ASDIRECTED PRN 11/26/16 [History] Lansoprazole [Prevacid] 1 cap PO DAILY 11/26/16 [History] Levothyroxine 1 tab PO DAILY 11/26/16 [History] Multivitamin with Minerals [Multiple Vitamin] 1 tab PO DAILY 11/26/16 [History] Potassium Chloride [Klor-Con 10] 30 meq PO TID 11/26/16 [History] Cyanocobalamin (Vitamin B-12) [B-12] 1 tab PO DAILY 09/09/17 [History] Hydrocortisone [Hydrocortisone 2.5% Crm] 1 strip TOP DAILY 09/09/17 [History] metroNIDAZOLE [metroNIDAZOLE 0.75% Cream] 1 strip TOP BID PRN 09/09/17 [History] tiZANidine [Zanaflex] 1 tab PO BID PRN 09/09/17 [History] Acetaminophen/oxyCODONE [Percocet 325-5 MG] 1 tab PO Q6HR PRN 90 Days tablet [Rx] Aspirin [Ecotrin] 325 mg PO DAILY #30 tab.ec 10/17/17 [Rx] Sulfamethoxazole/Trimethoprim [Bactrim Ds Tablet] 1 each PO BID #14 tablet 10/27 [Rx] Patient Handouts: Constipation, Adult, [id number] Referrals: Kyle Schilling DO [Physician] - 11/03/17 11:30 am - Discharge Summary/Plan Comment DC Time >30 min.: Yes Discharge Summary/Plan Comment: At this time we'll DC the patient to home. He is to follow-up with us in 3 weeks for staple removal. We did educate him on dressing changes. I did prescribe him Percocet for home. He is notify us if he has any other issues in the meantime. - Patient Data Vitals - Most Recent: Last Vital Signs Temp 37.3 C 10/17/17 10:24 Pulse 91 10/17/17 10:24 Resp 17 10/17/17 10:24 BP 100/60 10/17/17 10:24 Pulse Ox 94 L 10/17/17 10:24 Weight - Most Recent: 229 lb 15.991 oz Med Orders - Current: Current Medications Discontinued Medications Al Hydroxide/Mg Hydroxide (Mag-Al Plus) 30 ml PO Q4H PRN PRN Reason: Constipation Albuterol (Ventolin Hfa) 0 gm INH BID PRN PRN Reason: Shortness of Breath Last Admin: 10/16/17 19:49 Dose: 2 puff Aspirin (Ecotrin) 325 mg PO DAILY [facility] Aspirin (Ecotrin) 325 mg PO DAILY [facility] Last Admin: 10/17/17 08:59 Dose: 325 mg Atenolol (Tenormin) 50 mg PO DAILY [facility] Last Admin: 10/17/17 09:06 Dose: 50 mg Bisacodyl (Dulcolax) 10 mg PO DAILY PRN PRN Reason: Constipation Bisacodyl (Dulcolax) 10 mg PO DAILY [facility] Bisacodyl (Dulcolax) 10 mg PO DAILY [facility] Last Admin: 10/17/17 08:59 Dose: 10 mg Cholecalciferol (Vitamin D3) 2,000 units PO BID [facility] Last Admin: 10/17/17 09:01 Dose: 2,000 units Ropivacaine 49.25 ml/Ketorolac Tromethamine 30 mg/Epinephrine HCl 0.5 mg/ Clonidine HCl 80 mcg/ Sodium Chloride 48.45 ml 0 ml INJECT ONETIME ONE Stop: 10/14/17 07:46 Last Admin: 10/14/17 08:13 Dose: 100 ml Cyanocobalamin (Vitamin B12) 1,000 mcg PO DAILY [facility] Last Admin: 10/17/17 09:01 Dose: 1,000 mcg Diphenhydramine HCl (Benadryl) 25 mg IVPUSH Q4H PRN PRN Reason: Itching Diphenhydramine HCl (Benadryl) 25 mg IVPUSH Q4H PRN PRN Reason: Itching Docusate Sodium (Colace) 100 mg PO BID [facility] Docusate Sodium (Colace) 100 mg PO BID [facility] Last Admin: 10/17/17 08:59 Dose: 100 mg Doxycycline Hyclate (Vibramycin) 50 mg PO BID [facility] Doxycycline Hyclate (Vibramycin) 50 mg PO BID [facility] Last Admin: 10/17/17 09:01 Dose: 50 mg Fentanyl (Sublimaze) Confirm Administered Dose 100 mcg .ROUTE .STK-MED ONE Stop: 10/14/17 07:14 Fentanyl (Sublimaze) Confirm Administered Dose 100 mcg .ROUTE .STK-MED ONE Stop: 10/14/17 09:48 Fentanyl (Sublimaze) Confirm Administered Dose 100 mcg .ROUTE .STK-MED ONE Stop: 10/14/17 10:05 Finasteride (Proscar) 5 mg PO DAILY [facility] Last Admin: 10/17/17 09:00 Dose: 5 mg Gabapentin (Neurontin) 300 mg PO ONETIME ONE Stop: 10/14/17 06:01 Last Admin: 10/14/17 05:54 Dose: 300 mg Gabapentin (Neurontin) 900 mg PO TID [facility] Last Admin: 10/17/17 09:00 Dose: 900 mg Gentamicin Sulfate (Gentamicin) Confirm Administered Dose 240 mg .ROUTE .STK- MED ONE Stop: 10/14/17 06:39 Last Admin: 10/14/17 08:01 Dose: 240 mg Hydrocortisone (Hydrocortisone 2.5% Crm) 0 gm TOP DAILY [facility] Last Admin: 10/17/17 08:59 Dose: 1 applic Clindamycin Phosphate 900 mg/ (Sodium Chloride) 106 mls @ 200 mls/hr IV ONETIME ONE Stop: 10/14/17 08:01 Last Admin: 10/14/17 07:20 Dose: 200 mls/hr Lactated Ringer's (Ringers, Lactated) 1,000 mls @ 100 mls/hr IV ASDIRECTED [facility] Last Admin: 10/14/17 13:35 Dose: 100 mls/hr Lactated Ringer's (Ringers, Lactated) Confirm Administered Dose 1,000 mls @ as directed .ROUTE .STK-MED ONE Stop: 10/14/17 08:21 Acetaminophen 1,000 mg/ Premix 100 mls @ 400 mls/hr IV NOW ONE Stop: 10/14/17 10:54 Last Admin: 10/14/17 10:41 Dose: 400 mls/hr Clindamycin Phosphate 600 mg/ (Sodium Chloride) 54 mls @ 100 mls/hr IV Q6H [facility] Stop: 10/14/17 23:03 Last Admin: 10/14/17 19:45 Dose: Not Given Clindamycin Phosphate 600 mg/ (Sodium Chloride) 104 mls @ 192.593 mls/hr IV Q6H [facility] Stop: 10/15/17 01:33 Last Admin: 10/15/17 01:20 Dose: 192.593 mls/hr Ketamine HCl (Ketalar) 35 mg IV ASDIRECTED [facility] Ketoconazole (Nizoral 2% Crm) 0 gm TOP ASDIRECTED PRN PRN Reason: Itching Ketorolac Tromethamine (Toradol) 15 mg IVPUSH Q8H PRN PRN Reason: Pain Stop: 12/03/17 10:29 Ketorolac Tromethamine (Toradol) 15 mg IVPUSH Q8H PRN PRN Reason: Pain Stop: 10/19/17 10:29 Last Admin: 10/16/17 19:57 Dose: 15 mg Levothyroxine Sodium (Levothyroxine) 75 mcg PO ACBREAKFAST [facility] Last Admin: 10/17/17 07:36 Dose: 75 mcg Loratadine (Claritin) 10 mg PO DAILY [facility] Last Admin: 10/17/17 08:59 Dose: 10 mg Magnesium Hydroxide (Milk Of Magnesia) 30 ml PO BID PRN PRN Reason: Constipation Melatonin (Melatonin) 9 mg PO BEDTIME PRN PRN Reason: Sleep Last Admin: 10/16/17 20:33 Dose: 9 mg Metronidazole (Metronidazole 0.75% Cream) 0 gm TOP BID PRN PRN Reason: Itching Midazolam HCl (Versed 1 Mg/Ml) Confirm Administered Dose 2 mg .ROUTE .STK-MED ONE Stop: 10/14/17 07:14 Midazolam HCl (Versed 1 Mg/Ml) Confirm Administered Dose 2 mg .ROUTE .STK-MED ONE Stop: 10/14/17 08:20 Midazolam HCl (Versed 1 Mg/Ml) Confirm Administered Dose 2 mg .ROUTE .STK-MED ONE Stop: 10/14/17 09:28 Morphine Sulfate (Morphine) 2 mg IVPUSH Q2H PRN PRN Reason: Pain Multivitamins/Minerals (Thera M Plus) 1 tab PO DAILY [facility] Last Admin: 10/17/17 09:01 Dose: 1 tab Naloxone HCl (Narcan) 0.1 mg IVPUSH ONETIME PRN PRN Reason: Oversedation Naloxone HCl (Narcan) 0.1 mg IVPUSH ASDIRECTED PRN PRN Reason: Oversedation Stop: 10/15/17 02:00 Non-Formulary Medication (Cholecalciferol (Vitamin D3) [Vitamin D3]) 1 tab PO BID [facility] Non-Formulary Medication (Fexofenadine [Liv]) 1 tab PO DAILY [facility] Non-Formulary Medication (Lansoprazole [Prevacid]) 1 cap PO DAILY [facility] Non-Formulary Medication (Multivitamin With Minerals [Multiple Vitamin]) 1 tab PO DAILY [facility] Non-Formulary Medication (Potassium Chloride [Klor-Con 10]) 30 meq PO TID [facility] Doxycycline 50mg Cap 0 each PO BID [facility] Last Admin: 10/16/17 09:47 Dose: 1 each Ondansetron HCl (Zofran) 8 mg IVPUSH Q4H PRN PRN Reason: Nausea/Vomiting Oxycodone HCl (Oxycodone) 10 mg PO Q4H PRN PRN Reason: Pain Stop: 10/15/17 10:29 Oxycodone HCl (Oxycodone) 10 mg PO Q4H PRN PRN Reason: Pain Stop: 10/15/17 10:29 Last Admin: 10/15/17 08:20 Dose: 10 mg Oxycodone/Acetaminophen (Percocet 325-5 Mg) 2 tab PO Q4H PRN PRN Reason: Pain Last Admin: 10/17/17 13:10 Dose: 2 tab Pantoprazole Sodium (Protonix) 40 mg PO ACBREAKFAST [facility] Last Admin: 10/17/17 07:36 Dose: 40 mg Potassium Chloride (Potassium Chloride) 30 meq PO TIDMEALS [facility] Last Admin: 10/17/17 13:09 Dose: 30 meq Povidone Iodine (Betadine 10% Soln) Confirm Administered Dose 1 ml .ROUTE .STK- MED ONE Stop: 10/14/17 06:39 Last Admin: 10/14/17 08:02 Dose: 40 ml Propofol (Diprivan 20 Ml) Confirm Administered Dose 200 mg .ROUTE .STK-MED ONE Stop: 10/14/17 07:14 Propofol (Diprivan 20 Ml) Confirm Administered Dose 200 mg .ROUTE .STK-MED ONE Stop: 10/14/17 08:19 Propofol (Diprivan 20 Ml) Confirm Administered Dose 200 mg .ROUTE .STK-MED ONE Stop: 10/14/17 08:30 Scopolamine (Transderm-Scop) 1.5 mg TOP ONETIME ONE Stop: 10/14/17 06:01 Last Admin: 10/14/17 05:54 Dose: 1.5 mg Senna (Senna) 8.6 mg PO BID PRN PRN Reason: Constipation Senna (Senna) 8.6 mg PO BID [facility] Senna (Senna) 8.6 mg PO BID [facility] Last Admin: 10/17/17 09:00 Dose: 8.6 mg Sodium Chloride (Saline Flush) 10 ml FLUSH DAILY [facility] Sodium Chloride (Saline Flush) 10 ml FLUSH DAILY [facility] Last Admin: 10/17/17 09:56 Dose: Not Given Tamsulosin HCl (Flomax) 0.4 mg PO BIDPC [facility] Last Admin: 10/17/17 07:36 Dose: 0.4 mg Tizanidine HCl (Zanaflex) 4 mg PO BID PRN PRN Reason: Muscle Spasm Tramadol HCl (Ultram) 100 mg PO Q6H PRN PRN Reason: Pain Tramadol HCl (Ultram) 100 mg PO Q6H PRN PRN Reason: Pain Last Admin: 10/16/17 08:40 Dose: 100 mg Vancomycin HCl (Vancomycin) Confirm Administered Dose 2 gm .ROUTE .Differential-MED ONE Stop: 10/14/17 07:07 Last Admin: 10/14/17 08:01 Dose: 1 gm Zolpidem Tartrate (Ambien) 5 mg PO BEDTIME PRN PRN Reason: Sleep - Exam General: Reports: Alert, Oriented Back Exam: Reports: Full Range of Motion Extremities: Normal Inspection, Normal Range of Motion, Non-Tender, No Pedal Edema, Normal Capillary Refill Skin: Reports: Warm, Dry, Intact Wound/Incisions: Reports: Healing Well, Dressing Dry and Intact Neurological: Reports: No New Focal Deficit Psy/Mental Status: Reports: Alert *Q Meaningful Use (DIS) - VTE *Q VTE Criteria *Q: - Stroke *Q Stroke Criteria *Q: - AMI *Q AMI Criteria *Q:
== END 2017-10-17 13:29 | disposition home or self-care (01) | DRG 468 ==
LOC: JP.MS 05:29 → JP.SDS 05:29 → EDSTATUS 07:30 → JP.MS 10:29
PROVIDERS: ADMIT Orthopaedic Surgery; ATTEND Orthopaedic Surgery
PROC: 0SPU0JZ Removal of Synthetic Substitute from Left Knee Joint, Femoral Surface, Open Approach (ICD-10-PCS; principal; 2017-10-14)
PROC: 0SPW0JZ Removal of Synthetic Substitute from Left Knee Joint, Tibial Surface, Open Approach (ICD-10-PCS; 2017-10-14)
PROC: 0SRU0J9 Replacement of Left Knee Joint, Femoral Surface with Synthetic Substitute, Cemented, Open Approach (ICD-10-PCS; 2017-10-14)
PROC: 0SRW0J9 Replacement of Left Knee Joint, Tibial Surface with Synthetic Substitute, Cemented, Open Approach (ICD-10-PCS; 2017-10-14)
DX: T84.093A Other mechanical complication of internal left knee prosthesis, initial encounter (principal); M17.9 Osteoarthritis of knee, unspecified; I10 Essential (primary) hypertension; J44.9 Chronic obstructive pulmonary disease, unspecified; G47.33 Obstructive sleep apnea (adult) (pediatric); E21.3 Hyperparathyroidism, unspecified; E55.9 Vitamin D deficiency, unspecified; M54.9 Dorsalgia, unspecified; G89.29 Other chronic pain; E78.5 Hyperlipidemia, unspecified; Z87.891 Personal history of nicotine dependence; Z96.652 Presence of left artificial knee joint; Z79.82 Long term (current) use of aspirin; Z88.0 Allergy status to penicillin; Z88.8 Allergy status to other drugs, medicaments and biological substances; Z91.048 Other nonmedicinal substance allergy status
CPT/HCPCS: 36415; 73560-26-LT; 73560-LT; 80053; 85025; 87070; 87075; 87205; 97110-GP; 97116-GP; 97161-GP; 97165-GO; 97530-GP; A9270-GY; C1713; C1776; J0131; J0171; J0735; J1580; J1885; J2250; J2704; J2795; J3010; J3370; J7030; J7050; J7120; S0077

== ENCOUNTER 2018-04-07 08:08 | Day surgery (SDC) | payer OTHER ==
[~2018-04-07 08:08] MED LIST: Midazolam 1 MG/ML 2 ML SDV ONE; Propofol 200 MG/20 ML SDV ONE; fentaNYL 100 MCG/2 ML SDV ONE
[2018-04-07] MEDS ORDERED: Dextrose 5%-Lactated Ringers 1,000 ML IV SCH (09:15)
[2018-04-07 11:58] VITALS: BP 117/76
--- NOTE | 2018-04-14 10:14 | OR ---
DATE OF PROCEDURE: 04/07/2018 PREOPERATIVE DIAGNOSIS: History of colon polyps. POSTOPERATIVE DIAGNOSES: 1. History of colon polyps with no recurrent colonic neoplasia. 2. Scattered uncomplicated left colonic diverticulosis. OPERATIVE PROCEDURE: Flexible colonoscopy. ANESTHESIA: IV sedation. INDICATION FOR PROCEDURE: A 77-year-old referred from the [facility] for a followup colonoscopy. He does have history of colon polyps in the past. Plan is to proceed the colonoscopy with biopsies and polypectomies as indicated. Potential risks including bleeding and perforation were discussed, and the patient wishes to proceed. DESCRIPTION OF PROCEDURE: The patient was taken to the operating room and placed in the left lateral decubitus position. IV sedation was administered after which the initial digital rectal exam was performed and was unremarkable. Colonoscope was then passed into the rectum with retroflexion revealing uncomplicated hemorrhoidal columns. The scope was eventually passed to the level of the cecum. The prep was fairly good with only a small amount of liquid stool present to that level. The patient noted to have a few left colonic diverticula which otherwise were unremarkable. Apart from that, there were no areas of blood or bleeding. No areas of colitis and no polyps or other signs of colonic neoplasia. The scope was then withdrawn. The above findings reconfirmed and the procedure then concluded. Recommendation would be to repeat the colonoscopy in 5 years if at that time the patient's health is otherwise reasonably good given the history of the colon adenomas in the past. Nelson Schilling MD /[id number]
== END 2018-04-07 12:00 | disposition home or self-care (01) ==
LOC: JP.SDS 08:08
PROVIDERS: ATTEND Surgery
DX: Z12.11 Encounter for screening for malignant neoplasm of colon (principal); Z86.010 Personal history of colon polyps; K57.30 Diverticulosis of large intestine without perforation or abscess without bleeding; K64.9 Unspecified hemorrhoids; J44.9 Chronic obstructive pulmonary disease, unspecified; I10 Essential (primary) hypertension; E78.5 Hyperlipidemia, unspecified; E66.9 Obesity, unspecified; G47.33 Obstructive sleep apnea (adult) (pediatric); K21.9 Gastro-esophageal reflux disease without esophagitis
CPT/HCPCS: 45378; J2250; J2704; J3010; J7042

== ENCOUNTER 2018-08-19 10:45 | Emergency (ER) | payer MEDICARE, OTHER ==
--- NOTE | 2018-08-19 12:02 | EDM.PDOC ---
ED HPI GENERAL MEDICAL PROBLEM - General Chief Complaint: General Stated Complaint: NAUSA DIZZINESS Time Seen by Provider: 08/19/18 11:15 Source of Information: Reports: Patient, EMS, Family History Limitations: Reports: No Limitations - History of Present Illness INITIAL COMMENTS - FREE TEXT/NARRATIVE: 78-year-old male who was feeling his normal baseline 2 hours ago was sitting at a computer when he suddenly became extremely dizzy, diaphoretic, slight chest discomfort and nauseated. He leaned or fell towards the right and called for his . When she came in and grabbed him he was soaking wet and weak but conscious and talking and oriented. He then had emesis 2 or 3 times which is very unusual for him. EMS was called, he was mildly hypertensive but otherwise vitals were good and he was improving. By the time he got to the emergency room he was feeling much better and vitals were stable. Of interest is he was in sinus rhythm but while he was getting his intake evaluation with nursing he had a roughly 10 second run of narrow complex tachycardia that appears to be 2:1 flutter or junctional tachycardia. He has not had symptoms like this in the past. He has not recently been ill. Onset: Sudden Duration: Hour(s): (2 hours ago) Severity: Moderate Associated Symptoms: Reports: Chest Pain (Slight pressure, resolved), Diaphoresis (Profusely diaphoretic), Malaise, Nausea/Vomiting, Weakness. Denies : Fever/Chills, Headaches, Loss of Appetite, Shortness of Breath Generalized Pain Score (Numeric/FACES): 6 - Related Data Allergies Allergy/AdvReac Type Severity Reaction Status Date / Time acetaminophen [From Percocet] Allergy Other Verified 08/19/18 10:51 beclomethasone Allergy Other Verified 08/19/18 10:51 oxycodone [From Percocet] Allergy Other Verified 08/19/18 10:51 Penicillins Allergy Rash Verified 08/19/18 10:51 atorvastatin [From Lipitor] AdvReac Muscle Verified 08/19/18 10:51 Aches fluvastatin AdvReac Muscle Verified 08/19/18 10:51 Aches pravastatin AdvReac Muscle Verified 08/19/18 10:51 Aches rosuvastatin [From Crestor] AdvReac Muscle Verified 08/19/18 10:51 Aches simvastatin AdvReac Muscle Verified 08/19/18 10:51 Aches Bxlwmbi-Uoc-Hga Reductase AdvReac Muscle Verified 08/19/18 10:51 Inhibitor Aches Home Meds: Home Meds Acetaminophen 500 mg PO Q6H PRN 11/26/16 [History] Albuterol Sulfate [Proair Hfa] 2 puff INH BID PRN 11/26/16 [History] Atenolol [Tenormin] 50 mg PO DAILY 11/26/16 [History] Cholecalciferol (Vitamin D3) [Vitamin D3] 2,000 mg PO BID 11/26/16 [History] Doxycycline Calcium [IMW: Doxycycline] 50 mg PO BID 11/26/16 [History] Fexofenadine [Liv] 60 mg PO DAILY 11/26/16 [History] Finasteride [Proscar] 5 mg PO DAILY 11/26/16 [History] Gabapentin [Neurontin] 3 cap PO TID 11/26/16 [History] Ketoconazole [Nizoral 2% Crm] 1 appful TOP ASDIRECTED PRN 11/26/16 [History] Lansoprazole [Prevacid] 30 mg PO DAILY 11/26/16 [History] Levothyroxine 75 mcg PO DAILY 11/26/16 [History] Multivitamin with Minerals [Multiple Vitamin] 1 tab PO DAILY 11/26/16 [History] Potassium Chloride [Klor-Con 10] 30 meq PO TID 11/26/16 [History] Cyanocobalamin (Vitamin B-12) [B-12] 1,000 mcg PO DAILY 09/09/17 [History] Hydrocortisone [Hydrocortisone 2.5% Crm] 1 strip TOP DAILY 09/09/17 [History] Aspirin [Ecotrin] 81 mg PO DAILY 12/08/17 [History] Past Medical History HEENT History: Reports: Hard of Hearing, Impaired Vision Cardiovascular History: Reports: Hypertension, SOB on Exertion, Other (See Below ) Other Cardiovascular History: sinus arrhythmia Respiratory History: Reports: Sleep Apnea, SOB Gastrointestinal History: Reports: Chronic Diarrhea, Colon Polyp, GERD Genitourinary History: Reports: Renal Calculus Musculoskeletal History: Reports: Other (See Below) Other Musculoskeletal History: s/p L knee 10/14/17 Endocrine/Metabolic History: Reports: Hypothyroidism, Obesity/BMI 30+, Other ( See Below) Other Endocrine/Metabolic History: parathyroid and thyroid surgery Oncologic (Cancer) History: Reports: Basal Cell Carcinoma - Infectious Disease History Infectious Disease History: Reports: Chicken Pox, Measles, Mumps - Past Surgical History HEENT Surgical History: Reports: Adenoidectomy, Tonsillectomy GI Surgical History: Reports: Colonoscopy Endocrine Surgical History: Reports: Parathyroidectomy, Thyroidectomy Neurological Surgical History: Reports: Laminectomy, Lumbar Spine Musculoskeletal Surgical History: Reports: Arthroscopic Knee, Knee Replacement, Shoulder Surgery Dermatological Surgical History: Reports: Skin Biopsy Social & Family History - Family History Family Medical History: Noncontributory - Tobacco Use Smoking Status *Q: Never Smoker - Caffeine Use Caffeine Use: Reports: Coffee, Soda - Recreational Drug Use Recreational Drug Use: No ED ROS GENERAL - Review of Systems Review Of Systems: See Below Constitutional: Reports: Malaise, Diaphoresis. Denies: Fever, Chills HEENT: Denies: Vision Change (Denies double vision, he was having a hard time focusing briefly which has resolved) Respiratory: Denies: Shortness of Breath Cardiovascular: Reports: Chest Pain (Slight brief chest pressure) GI/Abdominal: Reports: Nausea, Vomiting. Denies: Abdominal Pain Musculoskeletal: Reports: No Symptoms Skin: Reports: Pallor, Diaphoresis Neurological: Reports: Confusion, Dizziness ED EXAM, GENERAL - Physical Exam Exam: See Below Exam Limited By: No Limitations General Appearance: Alert, No Apparent Distress Eye Exam: Bilateral Eye: Other (Eyes are now normal, I cannot reproduce nystagmus) Ears: Normal TMs Throat/Mouth: Normal Inspection Head: Atraumatic Respiratory/Chest: No Respiratory Distress, Lungs Clear Cardiovascular: Regular Rate, Rhythm, Extra Beats (Occasional extra beats are heard) GI/Abdominal: Soft, Tender (He reacts with some discomfort with palpation of the upper abdomen, no focal tenderness or rebound tenderness) Extremities: Normal Inspection. No: Pedal Edema Neurological: Alert, Oriented, No Motor/Sensory Deficits Psychiatric: Normal Affect, Normal Mood Skin Exam: Warm, Dry Course - Vital Signs Last Recorded V/S: Last Vital Signs Temp 98.6 F 08/19/18 16:43 Pulse 75 08/19/18 17:57 Resp 18 08/19/18 16:43 BP 136/79 08/19/18 17:57 Pulse Ox 96 08/19/18 16:43 - Orders/Labs/Meds Orders: Medication Orders Acetaminophen (Tylenol) 650 mg PO Q4H PRN PRN Reason: Pain (Mild 1-3)/fever Albuterol (Proventil Neb Soln) 2.5 mg NEB Q4H PRN PRN Reason: Shortness Of Breath/wheezing Aspirin (Halfprin) 81 mg PO DAILY [facility] Last Admin: 08/19/18 17:56 Dose: 81 mg Atenolol (Tenormin) 50 mg PO DAILY [facility] Last Admin: 08/19/18 17:57 Dose: 50 mg Enoxaparin Sodium (Lovenox) 40 mg SUBCUT DAILY [facility] Finasteride (Proscar) 5 mg PO DAILY [facility] Last Admin: 08/19/18 17:55 Dose: Not Given Gabapentin (Neurontin) mg PO TID [facility] Sodium Chloride (Normal Saline) 1,000 mls @ 125 mls/hr IV ASDIRECTED [facility] Lactobacillus Rhamnosus (Culturelle) 1 cap PO BID [facility] Levothyroxine Sodium 25 mcg/ (Levothyroxine Sodium 50 mcg) 75 mcg PO ACBREAKFAST [facility] Magnesium Hydroxide (Milk Of Magnesia) 30 ml PO Q12H PRN PRN Reason: Constipation Non-Formulary Medication (Fexofenadine [Liv]) 60 mg PO DAILY [facility] Non-Formulary Medication (Lansoprazole [Prevacid]) 30 mg PO DAILY [facility] Ondansetron HCl (Zofran) 4 mg IV Q4H PRN PRN Reason: Nausea/Vomiting Polyethylene Glycol (Miralax) 17 gm PO DAILY PRN PRN Reason: Constipation Potassium Chloride (Potassium Chloride) 30 meq PO TIDMEALS [facility] Last Admin: 08/19/18 17:56 Dose: 30 meq Senna/Docusate Sodium (Senna Plus) 1 tab PO BID PRN PRN Reason: Constipation Labs: Laboratory Tests 08/19/18 08/19/18 08/19/18 Range/Units 12:06 12:06 13:02 WBC 9.6 (4.5-11.0) K/uL RBC 4.77 (4.30-5.90) M/uL Hgb 13.6 (12.0-15.0) g/dL Hct 42.9 (40.0-54.0) % MCV 90 (80-98) fL MCH 29 (27-31) pg MCHC 32 (32-36) % Plt Count 240 (150-400) K/uL Neut % (Auto) 76 H (36-66) % Lymph % (Auto) 12 L (24-44) % [place] % (Auto) 9 H (2-6) % Eos % (Auto) 2 (2-4) % Baso % (Auto) 0 (0-1) % Sodium 140 (140-148) mmol/L Potassium 4.1 (3.6-5.2) mmol/L Chloride 104 (100-108) mmol/L Carbon Dioxide 26 (21-32) mmol/L Anion Gap 10.1 (5.0-14.0) mmol/L BUN 23 H (7-18) mg/dL Creatinine 1.1 (0.8-1.3) mg/dL Est Cr Clr Drug Dosing 51.74 mL/min Estimated GFR (MDRD) > 60 (>60) Glucose 121 H (74-106) mg/dL Calcium 9.1 (8.5-10.1) mg/dL Magnesium 1.7 L (1.8-2.4) mg/dL Total Bilirubin 0.5 (0.2-1.0) mg/dL AST 14 L (15-37) U/L ALT 27 (12-78) U/L Alkaline Phosphatase 100 (46-116) U/L Troponin I < 0.017 (0.000-0.056) ng/mL Total Protein 6.6 (6.4-8.2) g/dL Albumin 3.5 (3.4-5.0) g/dL Globulin 3.1 (2.3-3.5) g/dL Albumin/Globulin Ratio 1.1 L (1.2-2.2) TSH, Ultra Sensitive 1.970 (0.358-3.740) uIU/mL Meds: Medications Generic Name Dose Route Start Last Admin Trade Name Freq PRN Reason Stop Dose Admin Acetaminophen 650 mg 08/19/18 16:07 Tylenol PO Q4H PRN Pain (Mild 1-3)/fever Albuterol 2.5 mg 08/19/18 16:07 Proventil Neb Soln NEB Q4H PRN Shortness Of Breath/wheezing Aspirin 81 mg 08/19/18 18:00 08/19/18 17:56 Halfprin PO 81 mg DAILY [facility] Administration Atenolol 50 mg 08/19/18 17:00 08/19/18 17:57 Tenormin PO 50 mg DAILY [facility] Administration Enoxaparin Sodium 40 mg 08/20/18 09:00 Lovenox SUBCUT DAILY [facility] Finasteride 5 mg 08/19/18 16:07 08/19/18 17:55 Proscar PO Not Given DAILY [facility] Gabapentin mg 08/19/18 21:00 Neurontin PO TID [facility] Sodium Chloride 1,000 mls @ 125 mls/hr 08/19/18 16:07 Normal Saline IV ASDIRECTED [facility] Lactobacillus Rhamnosus 1 cap 08/19/18 21:00 Culturelle PO BID [facility] Levothyroxine Sodium 25 mcg/ 75 mcg 08/20/18 07:30 Levothyroxine Sodium 50 mcg PO ACBREAKFAST [facility] Magnesium Hydroxide 30 ml 08/19/18 16:07 Milk Of Magnesia PO Q12H PRN Constipation Non-Formulary Medication 60 mg 08/19/18 16:07 Fexofenadine [Liv] PO DAILY [facility] Non-Formulary Medication 30 mg 08/19/18 16:07 Lansoprazole [Prevacid] PO DAILY [facility] Ondansetron HCl 4 mg 08/19/18 16:07 Zofran IV Q4H PRN Nausea/Vomiting Polyethylene Glycol 17 gm 08/19/18 16:07 Miralax PO DAILY PRN Constipation Potassium Chloride 30 meq 08/19/18 17:00 08/19/18 17:56 Potassium Chloride PO 30 meq TIDMEALS [facility] Administration Senna/Docusate Sodium 1 tab 08/19/18 16:07 Senna Plus PO BID PRN Constipation Discontinued Medications Generic Name Dose Route Start Last Admin Trade Name Freq PRN Reason Stop Dose Admin Magnesium Sulfate 2 gm/ Premix 50 mls @ 25 mls/hr 08/19/18 15:49 08/19/18 16: 22 IV 08/19/18 17:48 25 mls/hr ONETIME ONE Administration - Re-Assessments/Exams Free Text/Narrative Re-Assessment/Exam: 08/19/18 12:03 CBC, CMP and troponin were obtained. A CT of the head will also be obtained without contrast. 08/19/18 13:03 Labs returned reassuring, troponin was negative. He did have an additional 10 second run of a narrow complex tachycardia which was asymptomatic. CT the head was completed. 10/03/18 13:[address] was negative for acute findings. Patient remained relatively asymptomatic, but after discussing his condition with Dr. Walters he'll be admitted on telemetry for observation with serial troponins and neurologic reevaluation. Departure - Departure Time of Disposition: 16:31 Disposition: Admitted As Inpatient 66 Condition: Fair Clinical Impression: Narrow complex tachycardia, Vertigo, Near syncope - Discharge Information
--- NOTE | 2018-08-19 13:28 | CT ---
Head wo Cont CLINICAL HISTORY: Sudden vertigo COMPARISON: 2007 TECHNIQUE: Transverse scans were obtained from the base of the skull through the vertex without IV co ntrast on a multislice, multidetector CT scanner. Auto dosage reduction and iterative reconstruction techniques employed. FINDINGS: There is an 8 x 9 mm calcification at the midline near the posterior superior third ventric le. This is present in 2008 and is unchanged. There is a cavum septum vergae There is no mass effect, hemorrhage, or extraaxial collection. The basal cisterns and sulci over the convexities are prominent. The ventricles are prominent. They've increased in size slightly since the 2008 study but the basal cisterns and sulci have also increased since. IMPRESSION: Mild to moderate atrophy which has progressed since prior study Stable calcified nodule at the midline near the roof of the third ventricle. 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
[2018-08-19] MEDS ORDERED: Magnesium Sulfate/Water 2 GM in Premix Bag 1 BAG IV ONE (15:49)
--- NOTE | 2018-08-19 16:01 | PCM.HP ---
H&P History of Present Illness - General Date of Service: 08/19/18 Admit Problem/Dx: Admission Diagnosis/Problem Admission Diagnosis/Problem Syncope Source of Information: Patient, Family, Provider, RN Notes Reviewed History Limitations: Reports: No Limitations - History of Present Illness Initial Comments - Free Text/Narative: Mr. Light is a 78-year-old gentleman who was admitted through the emergency department after experiencing a syncopal episode at home. He was feeling well and sitting at his computer when he suddenly felt very weak and lightheaded, and slumped onto the computer desk. Was a short period of time that his was unable to arouse him, there was associated diaphoresis, weakness, lightheadedness, nausea and vomiting. He's never had a similar episode in the past he denies any symptoms of chest pain or pressure shortness of breath or palpitations. He was brought into the emergency department by EMS. He's been hemodynamically stable while in the emergency department but has had a few short runs of narrow complex tachycardia. He is not experience significant symptoms of weakness or lightheadedness during these episodes. Initial troponin level is within normal range. He has no prior history of coronary artery disease or cerebral vascular disease. There has been no history of diabetes and his glucose level was found to be within normal range. Generalized Pain Score (Numeric/FACES): 6 - Related Data Allergies/Adverse Reactions: Allergies Allergy/AdvReac Type Severity Reaction Status Date / Time acetaminophen [From Percocet] Allergy Other Verified 08/19/18 10:51 beclomethasone Allergy Other Verified 08/19/18 10:51 oxycodone [From Percocet] Allergy Other Verified 08/19/18 10:51 Penicillins Allergy Rash Verified 08/19/18 10:51 atorvastatin [From Lipitor] AdvReac Muscle Verified 08/19/18 10:51 Aches fluvastatin AdvReac Muscle Verified 08/19/18 10:51 Aches pravastatin AdvReac Muscle Verified 08/19/18 10:51 Aches rosuvastatin [From Crestor] AdvReac Muscle Verified 08/19/18 10:51 Aches simvastatin AdvReac Muscle Verified 08/19/18 10:51 Aches [place]-Qal-Ieb Reductase AdvReac Muscle Verified 08/19/18 10:51 Inhibitor Aches Home Medications: Home Meds Acetaminophen 500 mg PO Q6H PRN 11/26/16 [History] Albuterol Sulfate [Proair Hfa] 2 puff INH BID PRN 11/26/16 [History] Atenolol [Tenormin] 50 mg PO DAILY 11/26/16 [History] Cholecalciferol (Vitamin D3) [Vitamin D3] 2,000 mg PO BID 11/26/16 [History] Doxycycline Calcium [IMW: Doxycycline] 50 mg PO BID 11/26/16 [History] Fexofenadine [Liv] 60 mg PO DAILY 11/26/16 [History] Finasteride [Proscar] 5 mg PO DAILY 11/26/16 [History] Gabapentin [Neurontin] 3 cap PO TID 11/26/16 [History] Ketoconazole [Nizoral 2% Crm] 1 appful TOP ASDIRECTED PRN 11/26/16 [History] Lansoprazole [Prevacid] 30 mg PO DAILY 11/26/16 [History] Levothyroxine 75 mcg PO DAILY 11/26/16 [History] Multivitamin with Minerals [Multiple Vitamin] 1 tab PO DAILY 11/26/16 [History] Potassium Chloride [Klor-Con 10] 30 meq PO TID 11/26/16 [History] Cyanocobalamin (Vitamin B-12) [B-12] 1,000 mcg PO DAILY 09/09/17 [History] Hydrocortisone [Hydrocortisone 2.5% Crm] 1 strip TOP DAILY 09/09/17 [History] Aspirin [Ecotrin] 81 mg PO DAILY 12/08/17 [History] Past Medical History HEENT History: Reports: Hard of Hearing, Impaired Vision Cardiovascular History: Reports: Hypertension, SOB on Exertion, Other (See Below ) Other Cardiovascular History: sinus arrhythmia Respiratory History: Reports: Sleep Apnea, SOB Gastrointestinal History: Reports: Chronic Diarrhea, Colon Polyp, GERD Genitourinary History: Reports: Renal Calculus Musculoskeletal History: Reports: Other (See Below) Other Musculoskeletal History: s/p L knee 10/14/17 Endocrine/Metabolic History: Reports: Hypothyroidism, Obesity/BMI 30+, Other ( See Below) Other Endocrine/Metabolic History: parathyroid and thyroid surgery Oncologic (Cancer) History: Reports: Basal Cell Carcinoma - Infectious Disease History Infectious Disease History: Reports: Chicken Pox, Measles, Mumps - Past Surgical History HEENT Surgical History: Reports: Adenoidectomy, Tonsillectomy GI Surgical History: Reports: Colonoscopy Endocrine Surgical History: Reports: Parathyroidectomy, Thyroidectomy Neurological Surgical History: Reports: Laminectomy, Lumbar Spine Musculoskeletal Surgical History: Reports: Arthroscopic Knee, Knee Replacement, Shoulder Surgery Dermatological Surgical History: Reports: Skin Biopsy Social & Family History - Family History Family Medical History: Noncontributory - Tobacco Use Smoking Status *Q: Never Smoker - Caffeine Use Caffeine Use: Reports: Coffee, Soda - Recreational Drug Use Recreational Drug Use: No H&P Review of Systems - Review of Systems: Review Of Systems: See Below General: Reports: Weakness, Diaphoresis. Denies: Fever, Chills HEENT: Reports: No Symptoms Pulmonary: Reports: No Symptoms Cardiovascular: Reports: Lightheadedness, Syncope. Denies: Chest Pain, Palpitations, Dyspnea on Exertion, Orthopnea, PND, Edema Gastrointestinal: Reports: No Symptoms Genitourinary: Reports: No Symptoms Musculoskeletal: Reports: Back Pain Skin: Reports: No Symptoms Psychiatric: Reports: No Symptoms Neurological: Reports: No Symptoms Hematologic/Lymphatic: Reports: No Symptoms Immunologic: Reports: No Symptoms Exam - Exam Exam: See Below - Vital Signs Vital Signs: Last Vital Signs Temp 97.5 F 08/19/18 10:57 Pulse 82 08/19/18 15:13 Resp 14 08/19/18 15:13 BP 123/82 08/19/18 15:13 Pulse Ox 96 08/19/18 15:13 Weight: 225 lb - Exam Quality Assessment: DVT Prophylaxis General: Alert, Oriented, Cooperative, Mild Distress HEENT: Conjunctiva Clear, Hearing Intact, Mucosa Moist & [place], Normal Nasal Septum, Posterior Pharynx Clear, Pupils Equal Neck: Supple, Trachea Midline, +2 Carotid Pulse wo Bruit Lungs: Clear to Auscultation, Normal Respiratory Effort Cardiovascular: Regular Rate, Regular Rhythm, Normal S1, Normal S2. No: Systolic Murmur, Diastolic Murmur GI/Abdominal Exam: Soft, Non-Tender, No Organomegaly, No Distention Back Exam: Normal Inspection, Full Range of Motion Extremities: Non-Tender, No Pedal Edema Skin: Warm, Dry, Intact Neurological: Cranial Nerves Intact, Strength Equal Bilateral, Normal Speech, Normal Tone, Sensation Intact. No: Focal Deficit Neuro Extensive - Mental Status: Alert, Oriented x3, Normal Mood/Affect, Normal Cognition, Memory Intact - Patient Data Lab Results Last 24 hrs: Laboratory Results - last 24 hr 08/19/18 08/19/18 08/19/18 Range/Units 12:06 12:06 13:02 WBC 9.6 (4.5-11.0) K/uL RBC 4.77 (4.30-5.90) M/uL Hgb 13.6 (12.0-15.0) g/dL Hct 42.9 (40.0-54.0) % MCV 90 (80-98) fL MCH 29 (27-31) pg MCHC 32 (32-36) % Plt Count 240 (150-400) K/uL Neut % (Auto) 76 H (36-66) % Lymph % (Auto) 12 L (24-44) % [place] % (Auto) 9 H (2-6) % Eos % (Auto) 2 (2-4) % Baso % (Auto) 0 (0-1) % Sodium 140 (140-148) mmol/L Potassium 4.1 (3.6-5.2) mmol/L Chloride 104 (100-108) mmol/L Carbon Dioxide 26 (21-32) mmol/L Anion Gap 10.1 (5.0-14.0) mmol/L BUN 23 H (7-18) mg/dL Creatinine 1.1 (0.8-1.3) mg/dL Est Cr Clr Drug Dosing 51.74 mL/min Estimated GFR (MDRD) > 60 (>60) Glucose 121 H (74-106) mg/dL Calcium 9.1 (8.5-10.1) mg/dL Magnesium 1.7 L (1.8-2.4) mg/dL Total Bilirubin 0.5 (0.2-1.0) mg/dL AST 14 L (15-37) U/L ALT 27 (12-78) U/L Alkaline Phosphatase 100 (46-116) U/L Troponin I < 0.017 (0.000-0.056) ng/mL Total Protein 6.6 (6.4-8.2) g/dL Albumin 3.5 (3.4-5.0) g/dL Globulin 3.1 (2.3-3.5) g/dL Albumin/Globulin Ratio 1.1 L (1.2-2.2) TSH, Ultra Sensitive 1.970 (0.358-3.740) uIU/mL Result Diagrams: 08/19/18 12:06 08/19/18 12:06 *Q Meaningful Use (ADM) - VTE Risk Assess *Q Each Risk Factor Represents 1 Point: Obesity ( BMI > 25 kg/m2) Total Score 1 Point Risk Factors: 1 Each Risk Factor Represents 2 Points: None Total Score 2 Point Risk Factors: 0 Each Risk Factor Represents 3 Points: Age 75 Years or Greater Total Score 3 Point Risk Factors: 3 Each Risk Factor Represents 5 Points: None Total Score 5 Point Risk Factors: 0 Venous Thromboembolism Risk Factor Score *Q: 4 Problem List Initiated/Reviewed/Updated: Yes Orders Last 24hrs: Active Orders 24 hr Category Date Time Status Patient Status Manage Transfer [TRANSFER] Routine ADT 08/19/18 15:49 Ordered Magnesium Sulfate/Water [Magnesium Sulfate 2 GM in Med 08/19/18 15:49 Active Water 50 ML] 2 gm Premix Bag 1 bag IV ONETIME Resuscitation Status Routine Resus Stat 08/19/18 15:55 Ordered Medication Orders Magnesium Sulfate 2 gm/ Premix 50 mls @ 25 mls/hr IV ONETIME ONE Stop: 08/19/18 17:48 Assessment/Plan Comment:: ASSESSMENT AND PLAN SYNCOPAL EPISODE-specific etiology not totally apparent by history, vagal episode versus possible dysrhythmia. Relatively abrupt onset of symptoms with minimal or no prodrome. Previous history of syncope or cardiac disease. -Orthostatic vital signs -Cardiac monitoring -IV fluids -Serial troponin levels -Echocardiogram in a.m. -[place] scan Cardiolite study in a.m. NARROW COMPLEX TACHYCARDIA-SVT versus atrial flutter with 2-1 conduction. Episodes have been short and asymptomatic while in the emergency department. Magnesium level found to be low and may be a contributing factor. -Cardiac monitoring -Replace magnesium level HYPOMAGNESEMIA -IV magnesium replacement -Recheck magnesium level in a.m. MAINTENANCE ISSUES -DVT prophylaxis; Lovenox 40 mg subcutaneous daily -GI prophylaxis; continue outpatient PPI therapy -Covarrubias catheter; not indicated -Nutrition; regular diet -Nicotine dependence; not required CODE STATUS-FULL CODE ADMISSION STATUS-patient will be admitted to inpatient status, expect at least a 2 night hospital stay for evaluation and management of problems as outlined above. At the time of this admission I do not reasonably expected evaluation and management of this problem will require more than a 96 hour hospital stay. DISPOSITION-anticipate discharge to home after the hospital stay. PRIMARY CARE PROVIDER-Dr. Woods
[2018-08-19] MEDS ORDERED: FEXOFENADINE 60 MG PO SCH (16:07)
[2018-08-19] MEDS ORDERED: Sodium Chloride 0.9% 1,000 ML IV SCH (16:07)
[2018-08-19] MEDS ORDERED: Albuterol 0.083% 2.5 MG/3 ML Neb Soln NEB PRN (16:07)
[2018-08-19] MEDS ORDERED: Polyethylene Glycol 3350 Powder 17 GM Packet PO PRN (16:07)
[2018-08-19] MEDS ORDERED: Acetaminophen 325 MG Tab PO PRN (16:07)
[2018-08-19] MEDS ORDERED: Non-Formulary Medication 1 Each (Lansoprazole [Prevacid] 30 MG) PO SCH (16:07)
[2018-08-19] MEDS ORDERED: Magnesium Hydroxide 400 MG/5 ML Susp 30 ML Cup PO PRN (16:07)
[2018-08-19] MEDS ORDERED: Ondansetron 4 MG/2 ML SDV IV PRN (16:07)
[2018-08-19] MEDS ORDERED: Potassium Chloride 10 MEQ Cap.ER PO SCH (17:00)
[2018-08-19] MEDS ORDERED: Atenolol 50 MG Tab PO SCH (17:00)
[2018-08-19] MEDS: Finasteride 5 MG Tab (PTOM) PO SCH (17:55)
[2018-08-19] MEDS: Aspirin 81 MG Tab.EC PO SCH (17:56)
[2018-08-19] MEDS: Lactobacillus Rhamnosus GG (Probiotic) Cap PO SCH (20:56)
[2018-08-19] MEDS ORDERED: POTASSIUM CHLORIDE 30 MEQ PO SCH (21:00)
[2018-08-19] MEDS ORDERED: Gabapentin 300 MG Cap PO SCH (21:00)
[2018-08-20] MEDS ORDERED: Levothyroxine 25 MCG, Levothyroxine 50 MCG PO SCH ×2 (07:30)
[2018-08-20] MEDS ORDERED: LEVOTHYROXINE 75MCG TAB (PTOM) PO SCH (08:30)
[2018-08-20] MEDS ORDERED: Aminophylline 250 MG/10 ML SDV IVPUSH ONE (08:49)
[2018-08-20] MEDS ORDERED: Enoxaparin 40 MG/0.4 ML Syringe SUBCUT SCH (09:00)
[2018-08-20] MEDS ORDERED: ATENOLOL 50 MG PO SCH (09:00)
[2018-08-20] MEDS ORDERED: Non-Formulary Medication 1 Each (Levothyroxine [Levothyroxine] 75 MCG) PO SCH (09:00)
[2018-08-20] MEDS ORDERED: FEXOFENADINE 60 MG PO SCH ×2 (09:00→21:00)
--- NOTE | 2018-08-20 10:01 | NM ---
Myocardial Perf Spect Multi INDICATION: Syncope COMPARISON: None. TECHNIQUE: Nuclear medicine myocardial perfusion scan was performed after IV administration of 9.59 millicuries uptake technetium 99m Myoview at rest and 32.8 millicuries of technetium 99m at stress ( Lexiscan). FINDINGS: Myocardial perfusion: There is some mild photopenia in the inferior wall on both the stress and res t images, slightly less on rest. Wall motion: Normal wall motion. LVEF stress: 65 % LVEF rest: 58 % Other findings: None. IMPRESSION: Minimal photopenia in the inferior wall is most likely attenuation artifact. It is sim ilar in appearance to 07/06/2017 study
[2018-08-20] MEDS: Potassium Chloride 10 MEQ Cap.ER (PTOM) PO SCH ×2 (10:12→13:26)
[2018-08-20 10:14] VITALS: BP 144/71
[2018-08-20] MEDS: Finasteride 5 MG Tab (PTOM) PO SCH (10:14)
[2018-08-20] MEDS: Lactobacillus Rhamnosus GG (Probiotic) Cap PO SCH (10:14)
[2018-08-20] MEDS: Aspirin 81 MG Tab.EC PO SCH (10:36)
[2018-08-20] MEDS ORDERED: Pantoprazole 40 MG Tab.CR PO SCH (11:30)
--- NOTE | 2018-08-20 13:25 | PCM.DCSUM1 ---
Discharge Summary - Hospital Course Brief History: Mr. Light is a 78-year-old gentleman who is admitted through the emergency department with weakness and lightheadedness after a near syncopal episode - Discharge Data Discharge Date: 08/20/18 Discharge Disposition: Home, Self-Care 01 Condition: Good - Discharge Diagnosis/Problem(s) (1) Narrow complex tachycardia SNOMED Code(s): 5275984 ICD Code: I47.1 - SUPRAVENTRICULAR TACHYCARDIA Status: Acute Current Visit: Yes (2) Vertigo SNOMED Code(s): 124547656 ICD Code: R42 - DIZZINESS AND GIDDINESS Status: Acute Current Visit: Yes (3) Near syncope SNOMED Code(s): 467656557 ICD Code: R55 - SYNCOPE AND COLLAPSE Status: Acute Current Visit: Yes (4) COPD (chronic obstructive pulmonary disease) SNOMED Code(s): 64401620 ICD Code: J44.9 - CHRONIC OBSTRUCTIVE PULMONARY DISEASE, UNSPECIFIED Status : Chronic Current Visit: No (5) Hypomagnesemia SNOMED Code(s): 512412949 ICD Code: E83.42 - HYPOMAGNESEMIA Status: Acute Current Visit: Yes - Patient Summary/Data Hospital Course: Mr. Light is a 78-year-old gentleman who was admitted through the emergency department after experiencing a near-syncopal episode at home. He was feeling well and sitting at his computer when he suddenly felt very weak and lightheaded , and slumped onto the computer desk. There was associated diaphoresis, weakness , lightheadedness, nausea and vomiting. He's never had a similar episode in the past he denies any symptoms of chest pain or pressure shortness of breath or palpitations. He was brought into the emergency department by EMS. He's been hemodynamically stable while in the emergency department but has had a few short runs of narrow complex tachycardia. He is not experience significant symptoms of weakness or lightheadedness during these episodes. Initial troponin level is within normal range. He has no prior history of coronary artery disease or cerebral vascular disease. There has been no history of diabetes and his glucose level was found to be within normal range. On admission he was given IV fluids for hydration. Telemetry monitoring showed no significant episodes of tachycardia dysrhythmia after his magnesium level had been corrected. Orthostatic vital signs showed no significant drop in blood pressure with standing. Serial troponin levels remained within normal range. Echocardiogram obtained on the day of discharge showed normal left ventricular function with no significant chamber enlargement or valvular disease. [place] scan Cardiolite study documented normal left ventricular function with no evidence of significant ischemia. Follow-up appointment will be scheduled with his primary care provider within one week. Activity will be as tolerated and he will be on a heart healthy diet. - Patient Instructions Diet: Heart Healthy Diet Activity: As Tolerated Other/Special Instructions: Please schedule follow-up appointment with primary care provider within one week. Patient should take probiotic twice daily. Take [id number] magnesium supplement twice daily. - Discharge Plan *PRESCRIPTION DRUG MONITORING PROGRAM REVIEWED*: Not Applicable *COPY OF PRESCRIPTION DRUG MONITORING REPORT IN PATIENT [place]: Not Applicable Home Medications: Home Meds Acetaminophen 500 mg PO Q6H PRN 11/26/16 [History] Albuterol Sulfate [Proair Hfa] 2 puff INH BID PRN 11/26/16 [History] Atenolol [Tenormin] 50 mg PO DAILY 11/26/16 [History] Cholecalciferol (Vitamin D3) [Vitamin D3] 2,000 mg PO BID 11/26/16 [History] Doxycycline Calcium [IMW: Doxycycline] 50 mg PO BID 11/26/16 [History] Fexofenadine [Liv] 60 mg PO DAILY 11/26/16 [History] Finasteride [Proscar] 5 mg PO DAILY 11/26/16 [History] Gabapentin [Neurontin] 900 mg PO TID 11/26/16 [History] Ketoconazole [Nizoral 2% Crm] 1 appful TOP ASDIRECTED PRN 11/26/16 [History] Lansoprazole [Prevacid] 30 mg PO DAILY 11/26/16 [History] Levothyroxine 75 mcg PO DAILY 11/26/16 [History] Multivitamin with Minerals [Multiple Vitamin] 1 tab PO DAILY 11/26/16 [History] Potassium Chloride [Klor-Con 10] 30 meq PO TID 11/26/16 [History] Cyanocobalamin (Vitamin B-12) [B-12] 1,000 mcg PO DAILY 09/09/17 [History] Hydrocortisone [Hydrocortisone 2.5% Crm] 1 strip TOP DAILY 09/09/17 [History] Aspirin [Ecotrin] 81 mg PO DAILY 12/08/17 [History] Referrals: Hilda Woods MD [Physician] - - Discharge Summary/Plan Comment DC Time >30 min.: No - Patient Data Vitals - Most Recent: Last Vital Signs Temp 97.9 F 08/20/18 07:32 Pulse 68 08/20/18 10:13 Resp 18 08/20/18 08:28 BP 144/71 H 08/20/18 10:13 Pulse Ox 97 08/20/18 07:32 Orthostatic Blood Pressure [ 132/86 Standing] Orthostatic Blood Pressure [ 117/79 Sitting] Orthostatic Blood Pressure [ 111/55 Supine] Weight - Most Recent: 280 lb 0.005 oz I&O - Last 24 hours: Intake & Output 08/19/18 08/20/18 08/20/18 22:59 06:59 14:59 Intake Total 1650 Balance 1650 Lab Results - Last 24 hrs: Laboratory Results - last 24 hr 08/19/18 08/19/18 08/20/18 Range/Units 13:02 20:00 04:45 Sodium 141 (140-148) mmol/L Potassium 4.6 (3.6-5.2) mmol/L Chloride 107 (100-108) mmol/L Carbon Dioxide 27 (21-32) mmol/L Anion Gap 7.2 (5.0-14.0) mmol/L BUN 24 H (7-18) mg/dL Creatinine 1.2 (0.8-1.3) mg/dL Est Cr Clr Drug Dosing 47.43 mL/min Estimated GFR (MDRD) 59 L (>60) Glucose 102 (74-106) mg/dL Calcium 8.8 (8.5-10.1) mg/dL Magnesium 1.7 L 2.0 (1.8-2.4) mg/dL Troponin I < 0.017 < 0.017 (0.000-0.056) ng/mL TSH, Ultra Sensitive 1.970 (0.358-3.740) uIU/mL Med Orders - Current: Current Medications Acetaminophen (Tylenol) 650 mg PO Q4H PRN PRN Reason: Pain (Mild 1-3)/fever Last Admin: 08/19/18 20:57 Dose: 650 mg Albuterol (Proventil Neb Soln) 2.5 mg NEB Q4H PRN PRN Reason: Shortness Of Breath/wheezing Aspirin (Halfprin) 81 mg PO BEDTIME [facility] Atenolol (Tenormin) 50 mg PO DAILY [facility] Last Admin: 08/20/18 10:13 Dose: 50 mg Enoxaparin Sodium (Lovenox) 40 mg SUBCUT DAILY [facility] Last Admin: 08/20/18 10:14 Dose: 40 mg Finasteride (Proscar) 5 mg PO DAILY [facility] Last Admin: 08/20/18 10:14 Dose: 5 mg Gabapentin (Neurontin) 900 mg PO TID [facility] Sodium Chloride (Normal Saline) 1,000 mls @ 125 mls/hr IV ASDIRECTED [facility] Last Admin: 08/20/18 07:47 Dose: 125 mls/hr Lactobacillus Rhamnosus (Culturelle) 1 cap PO BID [facility] Last Admin: 08/20/18 10:14 Dose: 1 cap Magnesium Hydroxide (Milk Of Magnesia) 30 ml PO Q12H PRN PRN Reason: Constipation Ondansetron HCl (Zofran) 4 mg IV Q4H PRN PRN Reason: Nausea/Vomiting Pantoprazole Sodium (Protonix) 40 mg PO ACBREAKFAST [facility] Last Admin: 08/20/18 10:34 Dose: Not Given Levothyroxine 75mcg (Tab (Ptom)) 0 each PO ACBREAKFAST [facility] Last Admin: 08/20/18 10:11 Dose: 1 each Fexofenadine 60mg ( (Ptom)) 0 each PO BEDTIME [facility] Polyethylene Glycol (Miralax) 17 gm PO DAILY PRN PRN Reason: Constipation Potassium Chloride (Potassium Chloride) 30 meq PO TIDMEALS [facility] Last Admin: 08/20/18 10:12 Dose: 30 meq Senna/Docusate Sodium (Senna Plus) 1 tab PO BID PRN PRN Reason: Constipation Discontinued Medications Aminophylline (Aminophylline) 125 mg IVPUSH ONETIME ONE Stop: 08/20/18 08:50 Last Admin: 08/20/18 08:51 Dose: 125 mg Aspirin (Halfprin) 81 mg PO DAILY [facility] Last Admin: 08/20/18 10:36 Dose: Not Given Atenolol (Tenormin) 50 mg PO DAILY [facility] Last Admin: 08/19/18 17:57 Dose: 50 mg Magnesium Sulfate 2 gm/ Premix 50 mls @ 25 mls/hr IV ONETIME ONE Stop: 08/19/18 17:48 Last Admin: 08/19/18 16:22 Dose: 25 mls/hr Fexofenadine 60mg ( (Ptom)) 0 each PO DAILY [facility] Last Admin: 08/20/18 10:36 Dose: Not Given Potassium Chloride (Potassium Chloride) 30 meq PO TIDMEALS [facility] Last Admin: 08/19/18 17:56 Dose: 30 meq Regadenoson (Lexiscan) 0.4 mg IVPUSH ONETIME ONE Stop: 08/20/18 08:30 Last Admin: 08/20/18 08:36 Dose: 0.4 mg - Exam General: Reports: Alert, Oriented, Cooperative, No Acute Distress Lungs: Reports: Clear to Auscultation, Normal Respiratory Effort Cardiovascular: Reports: Regular Rate, Regular Rhythm, No Murmurs GI/Abdominal Exam: Soft, Non-Tender, No Organomegaly, No Distention
[2018-08-20] MEDS ORDERED: Gabapentin 300 MG Cap PO SCH (14:00)
[2018-08-20] MEDS ORDERED: Aspirin 81 MG Tab.EC PO SCH (21:00)
--- NOTE | 2018-08-20 22:41 | STRESS ---
DATE OF SERVICE: 08/20/2018 TEST PERFORMED: Lexiscan Cardiolite Study. TECHNIQUE: Mr. Light was infused with usual dose of Lexiscan followed by the Cardiolite infusion given per protocol. He experienced symptoms of shortness of breath, chest tightness, and lightheadedness with Lexiscan infusion. After the study was completed, he continued to experience symptoms and was given 125 mg of aminophylline intravenously, which did result in resolution of symptoms. Resting EKG sinus rhythm, rate of 68, normal axis and intervals. Occasional premature ventricular complexes were noted. Otherwise, normal appearing EKG. No significant changes were seen on the posthyperventilation or standing ECGs. There were no significant ST-segment changes or T-wave abnormalities seen with Lexiscan infusion or during the post infusion. Other than occasional premature ventricular complexes, there were no other significant dysrhythmias noted. He did experience symptoms as reported above. IMPRESSION: Unremarkable Lexiscan portion of Lexiscan Cardiolite study. Dileep Walters MD /[id number]
== END 2018-08-20 14:34 | disposition home or self-care (01) ==
LOC: JP.ED 10:45 → JP.MS 15:49
PROVIDERS: ADMIT Hospitalist; ATTEND Hospitalist
DX: R00.0 Tachycardia, unspecified (principal); R42 Dizziness and giddiness; R55 Syncope and collapse; I10 Essential (primary) hypertension; E03.9 Hypothyroidism, unspecified; Z88.8 Allergy status to other drugs, medicaments and biological substances; Z88.6 Allergy status to analgesic agent; Z88.5 Allergy status to narcotic agent; Z79.899 Other long term (current) drug therapy; Z79.82 Long term (current) use of aspirin; Z88.0 Allergy status to penicillin
CPT/HCPCS: 36415; 70450; 78452; 80048; 80053; 83735; 84443; 84484; 85025; 93017; 93018; 93306; 96374; 99285; A9270; A9500; J0280; J1650; J2785; J3475; J7030

== ENCOUNTER 2020-05-23 18:59 | Emergency (ER) | payer MEDICARE, OTHER ==
--- NOTE | 2020-05-23 19:04 | EDM.PDOC ---
ED HPI GENERAL MEDICAL PROBLEM - General Chief Complaint: Trauma Stated Complaint: MEDICAL [facility] Time Seen by Provider: 05/23/20 19:04 Source of Information: Reports: Patient, EMS History Limitations: Reports: No Limitations - History of Present Illness INITIAL COMMENTS - FREE TEXT/NARRATIVE: 79 years old male patient brought in by EMS after a fall. History collected with help of EMS. Patient does not remember the fall himself. He remember he was three-step up the ladder but his said he was 12 feet up. The ladder slid and patient went down. He does not remember the fall. He is not sure if he hit his head or not. No loss of consciousness. Denies any headache or visual changes. Denies any neck pain. Complaining of slight discomfort of lumbar spine. Denies any chest pain or shortness breath. Denies any cough or fever. Denies any focal weakness or numbness anywhere. Denies any abdominal pain diarrhea or constipation. Denies any urinary symptom. Back Pain Score (Numeric/FACES): 6 - Related Data Allergies Allergy/AdvReac Type Severity Reaction Status Date / Time acetaminophen [From Percocet] Allergy Other Verified 05/23/20 19:21 beclomethasone Allergy Other Verified 05/23/20 19:21 oxycodone [From Percocet] Allergy Other Verified 05/23/20 19:21 Penicillins Allergy Rash Verified 05/23/20 19:21 atorvastatin [From Lipitor] AdvReac Muscle Verified 05/23/20 19:21 Aches fluvastatin AdvReac Muscle Verified 05/23/20 19:21 Aches pravastatin AdvReac Muscle Verified 05/23/20 19:21 Aches rosuvastatin [From Crestor] AdvReac Muscle Verified 05/23/20 19:21 Aches simvastatin AdvReac Muscle Verified 05/23/20 19:21 Aches Ploqpnb-Sby-Aja Reductase AdvReac Muscle Verified 05/23/20 19:21 Inhibitor Aches Home Meds: Home Meds Acetaminophen 500 mg PO Q6H PRN 11/26/16 [History] Albuterol Sulfate [Proair Hfa] 2 puff INH BID PRN 11/26/16 [History] Cholecalciferol (Vitamin D3) [Vitamin D3] 2,000 mg PO BID 11/26/16 [History] Doxycycline Calcium [IMW: Doxycycline] 50 mg PO BID 11/26/16 [History] Fexofenadine [Liv] 60 mg PO DAILY 11/26/16 [History] Finasteride [Proscar] 5 mg PO DAILY 11/26/16 [History] Gabapentin [Neurontin] 900 mg PO TID 11/26/16 [History] Ketoconazole [Nizoral 2% Crm] 1 appful TOP ASDIRECTED PRN 11/26/16 [History] Lansoprazole [Prevacid] 30 mg PO DAILY 11/26/16 [History] Levothyroxine 75 mcg PO DAILY 11/26/16 [History] Multivitamin with Minerals [Multiple Vitamin] 1 tab PO DAILY 11/26/16 [History] Potassium Chloride [Klor-Con 10] 30 meq PO TID 11/26/16 [History] atenoloL [Tenormin] 50 mg PO DAILY 11/26/16 [History] Cyanocobalamin (Vitamin B-12) [B-12] 1,000 mcg PO DAILY 09/09/17 [History] Hydrocortisone [Hydrocortisone 2.5% Crm] 1 strip TOP DAILY 09/09/17 [History] Aspirin [Ecotrin EC] 81 mg PO DAILY 12/08/17 [History] Past Medical History HEENT History: Reports: Hard of Hearing, Impaired Vision Cardiovascular History: Reports: Hypertension, SOB on Exertion, Other (See Below) Other Cardiovascular History: sinus arrhythmia Respiratory History: Reports: Sleep Apnea, SOB Gastrointestinal History: Reports: Chronic Diarrhea, Colon Polyp, GERD Genitourinary History: Reports: Renal Calculus Musculoskeletal History: Reports: Other (See Below) Other Musculoskeletal History: s/p L knee 10/14/17. 2 lumps in left knee Neurological History: Reports: None Psychiatric History: Reports: None Endocrine/Metabolic History: Reports: Hypothyroidism, Obesity/BMI 30+, Other (See Below) Other Endocrine/Metabolic History: parathyroid and thyroid surgery Hematologic History: Reports: None Immunologic History: Reports: None Oncologic (Cancer) History: Reports: Basal Cell Carcinoma - Infectious Disease History Infectious Disease History: Reports: Chicken Pox, Measles, Mumps - Past Surgical History Head Surgeries/Procedures: Reports: None HEENT Surgical History: Reports: Adenoidectomy, Tonsillectomy GI Surgical History: Reports: Colonoscopy Endocrine Surgical History: Reports: Parathyroidectomy, Thyroidectomy Neurological Surgical History: Reports: Laminectomy, Lumbar Spine Musculoskeletal Surgical History: Reports: Arthroscopic Knee, Knee Replacement, Shoulder Surgery Dermatological Surgical History: Reports: Skin Biopsy Social & Family History - Family History Family Medical History: Noncontributory - Caffeine Use Caffeine Use: Reports: None Review of Systems - Review of Systems Review Of Systems: Comprehensive ROS is negative, except as noted in HPI. ED EXAM, GENERAL - Physical Exam Exam: See Below Exam Limited By: No Limitations General Appearance: Alert, WD/WN, No Apparent Distress Ears: Normal External Exam, Normal Canal, Hearing Grossly Normal, Normal TMs Ear Exam: Bilateral Ear: Auricle Normal, Canal Normal, TM normal Nose: Normal Inspection, Normal Mucosa, No Blood Throat/Mouth: Normal Inspection, Normal Lips, Normal Teeth, Normal Gums, Normal Oropharynx, Normal Voice, No Airway Compromise Head: Atraumatic, Normocephalic Neck: Normal Inspection, Supple, Non-Tender, Full Range of Motion Respiratory/Chest: No Respiratory Distress, Lungs Clear, Normal Breath Sounds, No Accessory Muscle Use, Chest Non-Tender Cardiovascular: Normal Peripheral Pulses, Regular Rate, Rhythm, No Edema, No Gallop, No JVD, No Murmur, No Rub GI/Abdominal: Normal Bowel Sounds, Soft, Non-Tender, No Organomegaly, No Distention, No Abnormal Bruit, No Mass Back Exam: Normal Inspection, Full Range of Motion. No: Paraspinal Tenderness, Vertebral Tenderness Extremities: Normal Inspection, Normal Range of Motion, Non-Tender, Normal Capillary Refill, No Pedal Edema Neurological: Alert, Oriented, CN II-XII Intact, Normal Cognition, Normal Gait, Normal Reflexes, No Motor/Sensory Deficits Skin Exam: Warm, Dry, Intact, Normal Color, No Rash Course - Vital Signs Last Recorded V/S: Last Vital Signs Temp 36.1 C 05/23/20 19:14 Pulse 78 05/23/20 20:19 Resp 25 H 05/23/20 20:19 BP 141/77 H 05/23/20 20:19 Pulse Ox 97 05/23/20 20:19 - Orders/Labs/Meds Orders: Active Orders 24 hr Category Date Time Status Peripheral IV Care [RC] . DIRECTED Care 05/23/20 19:06 Active Iopamidol [Isovue-300 (61%)] Med 05/23/20 19:15 Active 100 ml IV . DIRECTED Sodium Chloride 0.9% [Normal Saline] 80 ml Med 05/23/20 19:15 Active IV ASDIRECTED Sodium Chloride 0.9% [Saline Flush] Med 05/23/20 19:05 Active 10 ml FLUSH ASDIRECTED PRN Sodium Chloride 0.9% [Saline Flush] Med 05/23/20 19:06 Active 10 ml FLUSH ASDIRECTED PRN Peripheral IV Insertion Adult [OM.PC] Urgent Oth 05/23/20 19:05 Ordered Medication Orders Sodium Chloride (Normal Saline) 80 mls @ 3 mls/sec IV ASDIRECTED [facility]KE[facility] Last Admin: 05/23/20 19:40 Dose: 3 mls/sec Documented by: JONATHANALY Iopamidol (Isovue-300 (61%)) [address] [facility] Last Admin: 05/23/20 19:41 Dose: 100 ml Documented by: STACIE Sodium Chloride (Saline Flush) 10 ml FLUSH ASDIRECTED PRN PRN Reason: Keep Vein Open Last Admin: 05/23/20 19:41 Dose: 10 ml Documented by: JONATHANALY Sodium Chloride (Saline Flush) 10 ml FLUSH ASDIRECTED PRN PRN Reason: Keep Vein Open Last Admin: 05/23/20 20:22 Dose: 10 ml Documented by: JENNIFER Labs: Laboratory Tests 05/23/20 05/23/20 05/23/20 Range/Units 19:05 19:05 19:05 WBC 10.4 (4.5-11.0) K/uL RBC 4.99 (4.30-5.90) M/uL Hgb 14.6 (12.0-15.0) g/dL Hct 46.5 (40.0-54.0) % MCV 93 (80-98) fL MCH 29 (27-31) pg MCHC 31 L (32-36) % Plt Count 207 (150-400) K/uL Neut % (Auto) 69 H (36-66) % Lymph % (Auto) 16 L (24-44) % [place] % (Auto) 12 H (2-6) % Eos % (Auto) 3 (2-4) % Baso % (Auto) 0 (0-1) % PT 10.3 (9.5-12.0) sec INR 0.95 (0.80-1.20) Sodium 142 (140-148) mmol/L Potassium 4.8 (3.6-5.2) mmol/L Chloride 107 (100-108) mmol/L Carbon Dioxide 24 (21-32) mmol/L Anion Gap 10.7 (5.0-14.0) mmol/L BUN 20 H (7-18) mg/dL Creatinine 1.4 H (0.7-1.3) mg/dL Est Cr Clr Drug Dosing TNP Estimated GFR (MDRD) 49 L (>60) BUN/Creatinine Ratio Not Reportable Glucose 114 H (74-106) mg/dL Lactic Acid (0.4-2.0) mmol/L Calcium 9.4 (8.5-10.1) mg/dL Total Bilirubin 0.4 (0.2-1.0) mg/dL AST 29 D (15-37) U/L ALT 43 (12-78) U/L Alkaline Phosphatase 108 (46-116) U/L Total Protein 6.9 (6.4-8.2) g/dL Albumin 3.8 (3.4-5.0) g/dL Globulin 3.1 (2.3-3.5) g/dL Albumin/Globulin Ratio 1.2 (1.2-2.2) Urine Color (YELLOW) Urine Appearance (CLEAR) Urine pH (5.0-8.0) Ur Specific [place] (1.008-1.030) Urine Protein (NEGATIVE) mg/dL Urine Glucose (UA) (NEGATIVE) mg/dL Urine Ketones (NEGATIVE) mg/dL Urine Occult Blood (NEGATIVE) Urine Nitrite (NEGATIVE) Urine Bilirubin (NEGATIVE) Urine Urobilinogen (0.2-1.0) EU/dL Ur Leukocyte Esterase (NEGATIVE) Urine RBC (0-5) Urine WBC (0-5) Ur Epithelial Cells Amorphous Sediment Urine Bacteria Urine Mucus 05/23/20 05/23/20 Range/Units 19:05 20:02 WBC (4.5-11.0) K/uL RBC (4.30-5.90) M/uL Hgb (12.0-15.0) g/dL Hct (40.0-54.0) % MCV (80-98) fL MCH (27-31) pg MCHC (32-36) % Plt Count (150-400) K/uL Neut % (Auto) (36-66) % Lymph % (Auto) (24-44) % [place] % (Auto) (2-6) % Eos % (Auto) (2-4) % Baso % (Auto) (0-1) % PT (9.5-12.0) sec INR (0.80-1.20) Sodium (140-148) mmol/L Potassium (3.6-5.2) mmol/L Chloride (100-108) mmol/L Carbon Dioxide (21-32) mmol/L Anion Gap (5.0-14.0) mmol/L BUN (7-18) mg/dL Creatinine (0.7-1.3) mg/dL Est Cr Clr Drug Dosing Estimated GFR (MDRD) (>60) BUN/Creatinine Ratio Glucose (74-106) mg/dL Lactic Acid 1.6 (0.4-2.0) mmol/L Calcium (8.5-10.1) mg/dL Total Bilirubin (0.2-1.0) mg/dL AST (15-37) U/L ALT (12-78) U/L Alkaline Phosphatase (46-116) U/L Total Protein (6.4-8.2) g/dL Albumin (3.4-5.0) g/dL Globulin (2.3-3.5) g/dL Albumin/Globulin Ratio (1.2-2.2) Urine Color Yellow (YELLOW) Urine Appearance Clear (CLEAR) Urine pH 5.5 (5.0-8.0) Ur Specific [place] 1.020 (1.008-1.030) Urine Protein Negative (NEGATIVE) mg/dL Urine Glucose (UA) Negative (NEGATIVE) mg/dL Urine Ketones Negative (NEGATIVE) mg/dL Urine Occult Blood Small H (NEGATIVE) Urine Nitrite Negative (NEGATIVE) Urine Bilirubin Negative (NEGATIVE) Urine Urobilinogen 0.2 (0.2-1.0) EU/dL Ur Leukocyte Esterase Negative (NEGATIVE) Urine RBC 10-20 H (0-5) Urine WBC 0-5 (0-5) Ur Epithelial Cells Rare Amorphous Sediment Not seen Urine Bacteria Not seen Urine Mucus Rare Meds: Medications Generic Name Dose Route Start Last Admin Trade Name Freq PRN Reason Stop Dose Admin Sodium Chloride 80 mls @ 3 mls/sec 05/23/20 19:15 05/23/20 19:40 Normal Saline IV 3 mls/sec ASDIRECTED MARKELL Administration Iopamidol 100 ml 05/23/20 19:15 05/23/20 19:41 Isovue-300 (61%) IV 100 ml . DIRECTED MARKELL Administration Sodium Chloride 10 ml 05/23/20 19:06 05/23/20 19:41 Saline Flush FLUSH 10 ml ASDIRECTED PRN Administration Keep Vein Open Sodium Chloride 10 ml 05/23/20 19:05 05/23/20 20:22 Saline Flush FLUSH 10 ml ASDIRECTED PRN Administration Keep Vein Open Discontinued Medications Generic Name Dose Route Start Last Admin Trade Name Freq PRN Reason Stop Dose Admin Sodium Chloride 1,000 mls @ 999 mls/hr 05/23/20 19:10 05/23/20 19:18 Normal Saline IV 05/23/20 20:10 999 mls/hr .BOLUS STA Administration - Re-Assessments/Exams Free Text/Narrative Re-Assessment/Exam: 05/23/20 19:18 Patient was seen and examined immediately on arrival as a trauma code. Primary survey shows no airway compromise. Breathing comfortably. Hemodynamically stable. Neurologically intact. GCS 15 Exposure shows no obvious trauma or injury. Given the mechanism of the trauma, falling 12 feet of the ladder and he does not remember the event. Concern about head injury. I did recommend for the patient transfer to a higher level of care to a trauma center however the patient refused transfer and wanted to stay here. And had his workup here in our hospital. Patient understands the risk and is is any serious injury he still have to be transferred but and in this case is transfer would have been delayed. Patient is alert, oriented and competent to make decision. To IV was started. Given 1 L normal saline bolus. Lab and imaging reviewed. CT head shows subdural hematoma. CT chest abdomen pelvis shows pelvic hematoma. Case was discussed with Dr. Sequeira ER physician from the trauma team at [facility] and he accepted the transfer for further management. Hemodynamically stable. Air was contacted immediately. Stable for transfer. Critical care time of at least 90 minutes spent taking care of this patient. 05/23/20 21:27 Departure - Departure Time of Disposition: 21:03 Disposition: DC/Tfer to Acute Hospital 02 Condition: Serious Clinical Impression: Subdural hemorrhage, Pelvic hematoma in male - Discharge Information Referrals: PCP,None [Primary Care Provider] - Forms: ED Department Discharge Sepsis Event Note (ED) - Focused Exam Vital Signs: Vital Signs Temp Pulse Resp BP Pulse Ox 05/23/20 20:19 78 25 H 141/77 H 97 05/23/20 20:04 80 15 98 05/23/20 19:14 36.1 C 79 16 126/82 97 05/23/20 19:05 36.1 C 79 16 126/82 97 - My Orders Last 24 Hours: My Active Orders 05/23/20 19:05 Sodium Chloride 0.9% [Saline Flush] 10 ml FLUSH ASDIRECTED PRN Peripheral IV Insertion Adult [OM.PC] Urgent 05/23/20 19:06 Peripheral IV Care [RC] . DIRECTED Sodium Chloride 0.9% [Saline Flush] 10 ml FLUSH ASDIRECTED PRN 05/23/20 19:15 Iopamidol [Isovue-300 (61%)] 100 ml IV . DIRECTED Sodium Chloride 0.9% [Normal Saline] 80 ml IV ASDIRECTED - Assessment/Plan Last 24 Hours: My Active Orders 05/23/20 19:05 Sodium Chloride 0.9% [Saline Flush] 10 ml FLUSH ASDIRECTED PRN Peripheral IV Insertion Adult [OM.PC] Urgent 05/23/20 19:06 Peripheral IV Care [RC] . DIRECTED Sodium Chloride 0.9% [Saline Flush] 10 ml FLUSH ASDIRECTED PRN 05/23/20 19:15 Iopamidol [Isovue-300 (61%)] 100 ml IV . DIRECTED Sodium Chloride 0.9% [Normal Saline] 80 ml IV ASDIRECTED
[2020-05-23] MEDS ORDERED: Sodium Chloride 0.9% 10 ML Syringe FLUSH PRN ×2 (19:05→19:06)
[2020-05-23] MEDS ORDERED: Sodium Chloride 0.9% 1,000 ML IV STA (19:10)
[2020-05-23] MEDS ORDERED: Iopamidol 612 MG/ML 100 ML Bottle IV SCH (19:15)
[2020-05-23] MEDS ORDERED: Sodium Chloride 0.9% 80 ML IV SCH (19:15)
[2020-05-23 20:20] VITALS: BP 141/77; PULSE 78
--- NOTE | 2020-05-23 20:43 | CRLCT ---
INDICATION: Trauma TECHNIQUE: CT head without contrast. COMPARISON: 08/19/2018 FINDINGS: Mild age-related atrophy is noted. Again seen is a 1.3 x 0.9 cm high attenuation colloid cyst on images 21-24. Mild ventriculomegaly is stable. There is no mass effect or midline shift. Few foci of white matter hypodensity are suggestive of mild chronic small vessel ischemic changes. There is no loss of quiñones-white differentiation. There is small amount of subdural blood along the right tentorial root and possible smaller subdural blood along the left tentorium. Small amount of subdural blood is also seen along the anterior falx. No acute calvarial fracture is seen. Mild posterior scalp soft tissue swelling is noted. A posterolateral right occipital scalp lipoma is again seen. Trace mucosal thickening is seen in the frontal sinus inferior recesses. The mastoid air cells are clear. The visualized orbits are grossly stable. IMPRESSION: Small amount of peritentorial and anterior parafalcine subdural blood. A 1.3 cm colloid cyst again seen. Stable appearance of the ventricles. Dictated by Lee Mayer MD @ 05/23/2020 8:41:30 PM Please note that all CT scans at this facility use dose modulation, iterative reconstruction, and/or weight-based dosing when appropriate to reduce radiation dose to as low as reasonably achievable. Dictated by: Lee Mayer MD @ 05/23/2020 20:41:36 (Electronically Signed)
--- NOTE | 2020-05-23 20:51 | CRLCT ---
INDICATION: Trauma TECHNIQUE: CT cervical spine without contrast. COMPARISON: None available FINDINGS: There is straightening of the cervical lordosis. Mild anterolisthesis of C2 on C3 is presumably degenerative. The craniocervical and atlantoaxial alignments are near anatomical. There is no evidence of an acute cervical spine fracture. A sclerotic focus in the right T1 pars interarticularis is nonspecific. There is no significant precervical soft tissue swelling. Degenerative changes are noted at multiple levels. There is retropharyngeal course of the carotids. IMPRESSION: No evidence of an acute cervical spine fracture. Dictated by Lee Mayer MD @ 05/23/2020 8:50:24 PM Please note that all CT scans at this facility use dose modulation, iterative reconstruction, and/or weight-based dosing when appropriate to reduce radiation dose to as low as reasonably achievable. Dictated by: Lee Mayer MD @ 05/23/2020 20:50:29 (Electronically Signed)
--- NOTE | 2020-05-23 21:22 | CRLCT ---
INDICATION: Low back pain after fall from a 12 foot ladder. COMPARISON: None available TECHNIQUE: CT examination of the chest, abdomen, and pelvis was performed with the uneventful intravenous administration of 100 cc of Isovue-300 while 3 mm thick axial sections were obtained from above the apices of the lungs through the symphysis pubis. Oral contrast was not administered. Please note that all CT scans at this facility use dose modulation, iterative reconstruction, and/or weight-based dosing when appropriate to reduce radiation dose to as low as reasonably achievable. FINDINGS: : A tiny subpleural calcified granuloma is seen in the medial aspect of the posterior segment of the right upper lobe. The lungs are otherwise clear with no sign of significant infiltrate or mass. There is no sign of pneumothorax, pulmonary contusion, pleural effusion, or pleural hematoma. There is no sign of mediastinal or hilar mass or adenopathy. There is moderate LAD coronary calcification. The heart is otherwise normal in appearance for the patient`s age, as are the aorta and other ascending great vessels. There is no sign of supraclavicular or axillary mass or adenopathy. There is moderate scoliosis of the thoracolumbar spine convex towards the right. There is no sign of any fracture or subluxation of the thoracic spine. There is prominent disc degenerative disease in the inferior thoracic spine related to the scoliosis. There is no sign of rib fracture, fracture of the sternum or manubrium, or fracture of the visualized shoulder girdle. In the abdomen, the liver is low in density, representing fatty infiltration. There is no sign of mass. The spleen, pancreas and adrenals are normal in appearance. There are multiple simple appearing cysts arising from both kidneys, consistent with autosomal dominant polycystic kidney disease. There is a nonobstructive 10 millimeter calculus in the dependent portion mildly dilated right renal pelvis. There is mild dilatation of the calices with ounce with dilatation of the proximal ureter. The findings suggest mild right UPJ stenosis. Two tiny 2 millimeter calculi are seen in the lower pole of the right kidney. There is no sign of obstruction of the left collecting system or ureter. There is no sign of any renal or ureteral calculi on the left. The gallbladder is normal in appearance. The abdominal aorta is normal in caliber with no sign of dilatation. There is no sign of retroperitoneal mass or adenopathy. The stomach, loops of small bowel, and right colon in the abdomen are normal in appearance. There is mild diverticulosis of the descending colon with no sign of diverticulitis. There is a moderate subcutaneous hematoma in the central and right posterior back. This is not associated with any fracture of the underlying sacrum or right iliac wing. There is no sign of any associated disruption of the right sacroiliac joint. In the pelvis, the appendix is normal in appearance with no sign of inflammatory process. There is moderate proximal sigmoid diverticulosis without evidence of diverticulitis. The loops of small bowel and colon in the pelvis are otherwise normal in appearance. The prostate is normal in appearance. The urinary bladder is normal in appearance. There is no sign of pelvic or inguinal mass or adenopathy. There is no sign of free air or free fluid in the abdomen or pelvis. There is mild scoliosis of the lumbar spine convex towards the left with prominent disc degenerative disease throughout the lumbar spine related to the scoliosis. There is no sign of any fracture or subluxation and there is no sign of fracture of the posterior elements. IMPRESSION: CT of the chest shows no sign of traumatic injury. Minor granulomatous disease. CT of the abdomen shows no sign of traumatic injury. Fatty infiltration of the liver. Mild right hydronephrosis without hydroureter, consistent with mild right UPJ stenosis. Several nonobstructive calculi in the right kidney, the largest in the dependent portion of the renal pelvis measuring 10 millimeters in diameter. Multiple simple appearing cysts arising from both kidneys consistent with autosomal dominant polycystic kidney disease. Mild diverticulosis of the descending colon with no sign of diverticulitis. CT of the pelvis shows a moderate sized subcutaneous hematoma in the central and right paramedian posterior pelvic wall overlying the sacrum and right iliac wing, with no sign of any associated osseous injury. No sign of injury to the internal structures of the pelvis. Moderate sigmoid diverticulosis with no sign of diverticulitis. Prominent degenerative changes throughout the lumbar spine related to mild scoliosis convex towards the left. No sign of any acute osseous injury in the pelvis. Please note that all CT scans at this facility use dose modulation, iterative reconstruction, and/or weight-based dosing when appropriate to reduce radiation dose to as low as reasonably achievable. Dictated by Solo Bauman MD @ May 23 2020 9:05PM Signed by Dr. Solo Bauman @ May 23 2020 9:20PM
== END 2020-05-23 21:33 ==
LOC: JP.ED 18:59
DX: S06.5X0A Traumatic subdural hemorrhage without loss of consciousness, initial encounter (principal); S37.92XA Contusion of unspecified urinary and pelvic organ, initial encounter; I10 Essential (primary) hypertension; K21.9 Gastro-esophageal reflux disease without esophagitis; E03.9 Hypothyroidism, unspecified; E66.9 Obesity, unspecified; Z88.6 Allergy status to analgesic agent; Z88.5 Allergy status to narcotic agent; Z88.0 Allergy status to penicillin; Z88.1 Allergy status to other antibiotic agents; Z88.8 Allergy status to other drugs, medicaments and biological substances; Z79.899 Other long term (current) drug therapy; Z79.82 Long term (current) use of aspirin; W11.XXXA Fall on and from ladder, initial encounter
CPT/HCPCS: 36415; 70450; 71260; 72125; 74177; 80053; 81001; 83605; 85025; 85610; 99291; 99292; G0390; J7030; J7050; Q9967; 99284

== ENCOUNTER 2021-10-22 07:35 | Day surgery (SDC) | payer OTHER ==
[2021-10-22] MEDS ORDERED: Bacitracin Oint 1 GM U/D Packet ONE (08:17)
[2021-10-22] MEDS: Dextrose 5%-Lactated Ringers 1,000 ML IV SCH (08:31)
[2021-10-22] MEDS ORDERED: Propofol 200 MG/20 ML SDV ONE (09:33)
[2021-10-22] MEDS: Bupivacaine 0.5% 50 ML MDV ONE (10:00)
[2021-10-22] MEDS: Lidocaine 1% with EPINEPHrine 1:100,000 50 ML MDV ONE (10:00)
[2021-10-22 11:12] VITALS: BP 118/66; PULSE 85
--- NOTE | 2021-10-23 09:11 | OR ---
DATE OF PROCEDURE: 10/22/2021 SURGEON: Christian Reyes MD PROCEDURE: Ultrasound-guided vacuum assisted biopsy, left chest x2. COMPLICATIONS: None. PRINTING AGENT: None. ANESTHESIA: MAC. PREOPERATIVE DIAGNOSIS: Subcutaneous mass extending into the mediastinum requiring biopsy. POSTOPERATIVE DIAGNOSIS: Subcutaneous mass extending into the mediastinum requiring biopsy. PROCEDURE IN DETAIL: The patient was prepped and draped. The left chest area was identified. The mass was readily identified using 13 megahertz ultrasound probe. The skin was anesthetized with 1% lidocaine and a tina was created. The Monalisa vacuum suction device was then introduced and biopsied in the center of the mass x2. This was then sent to pathology. A marking coil system was then introduced and marked at the biopsy tract location. A lssopo-up-[id number] stitch was applied. The patient tolerated the procedure well. Christian Reyes MD /[id number]
== END 2021-10-22 11:20 | disposition home or self-care (01) ==
LOC: JP.SDS 07:35
PROVIDERS: ATTEND Surgery
DX: C83.39 Diffuse large B-cell lymphoma, extranodal and solid organ sites (principal); I12.9 Hypertensive chronic kidney disease with stage 1 through stage 4 chronic kidney disease, or unspecified chronic kidney disease; N18.9 Chronic kidney disease, unspecified; G47.33 Obstructive sleep apnea (adult) (pediatric); K21.9 Gastro-esophageal reflux disease without esophagitis; E03.9 Hypothyroidism, unspecified
CPT/HCPCS: 32999; 76998; J2704; J3490; J7121

== ENCOUNTER 2021-11-01 12:03 | Emergency (ER) | payer OTHER ==
[2021-11-01 12:27] VITALS: BP 111/58; PULSE 85
--- NOTE | 2021-11-01 12:37 | EDM.PDOC ---
ED HPI GENERAL MEDICAL PROBLEM - General Chief Complaint: Lower Extremity Injury/Pain Stated Complaint: FELL YESTERDAY AND TWISTED L ANKLE/FOOT Time Seen by Provider: 11/01/21 12:34 Source of Information: Reports: Patient History Limitations: Reports: No Limitations - History of Present Illness INITIAL COMMENTS - FREE TEXT/NARRATIVE: pt was at [employer] and was getting in his truck. He slide under the truck and twisted his left ankle. He did swell quite rapidly. The swelling was down some today. Onset: Other ( pt injured the ankle yesterday. ) Duration: Hour(s): Location: Reports: Lower Extremity, Left Associated Symptoms: Reports: No Other Symptoms Left Ankle Pain Score (Numeric/FACES): 8 - Related Data Allergies Allergy/AdvReac Type Severity Reaction Status Date / Time acetaminophen [From Percocet] Allergy Other Verified 10/22/21 08:10 beclomethasone Allergy Other Verified 10/22/21 08:10 oxycodone [From Percocet] Allergy Other Verified 10/22/21 08:10 Penicillins Allergy Rash Verified 10/22/21 08:10 atorvastatin [From Lipitor] AdvReac Muscle Verified 10/22/21 08:10 Aches fluvastatin AdvReac Muscle Verified 10/22/21 08:10 Aches pravastatin AdvReac Muscle Verified 10/22/21 08:10 Aches rosuvastatin [From Crestor] AdvReac Muscle Verified 10/22/21 08:10 Aches simvastatin AdvReac Muscle Verified 10/22/21 08:10 Aches Bkmpueo-CVW-PfC Reductase AdvReac Muscle Verified 10/22/21 08:10 Inhibitor Aches [Ahypbap-Hoj-Azf Reductase Inhibitor] Home Meds: Home Meds Acetaminophen 500 mg PO Q6H PRN 11/26/16 [History] Albuterol Sulfate [Proair Hfa] 2 puff INH QID 11/26/16 [History] Cholecalciferol (Vitamin D3) [Vitamin D3] 2,000 mg PO BID 11/26/16 [History] Doxycycline Calcium [IMW: Doxycycline] 50 mg PO BID 11/26/16 [History] Fexofenadine [Liv] 60 mg PO BID 11/26/16 [History] Finasteride [Proscar] 5 mg PO DAILY 11/26/16 [History] Gabapentin [Neurontin] 900 mg PO TID 11/26/16 [History] Ketoconazole [Nizoral 2% Crm] 1 appful TOP ASDIRECTED PRN 11/26/16 [History] Lansoprazole [Prevacid] 30 mg PO DAILY 11/26/16 [History] Levothyroxine 75 mcg PO DAILY 11/26/16 [History] Multivitamin with Minerals [Multiple Vitamin] 1 tab PO DAILY 11/26/16 [History] Potassium Chloride [Klor-Con 10] 30 meq PO TID 11/26/16 [History] atenoloL [Tenormin] 50 mg PO QAM 11/26/16 [History] Cyanocobalamin (Vitamin B-12) [B-12] 1,000 mcg PO DAILY 09/09/17 [History] Hydrocortisone [Hydrocortisone 2.5% Crm] 1 strip TOP DAILY 09/09/17 [History] Aspirin [Ecotrin EC] 81 mg PO DAILY 12/08/17 [History] Baclofen 5 mg PO TID PRN 10/18/21 [History] Magnesium Oxide 420 mg PO BID 10/18/21 [History] Olodaterol HCl [Striverdi Respimat] 2 puff INH DAILY 10/18/21 [History] Triamcinolone Acetonide [Triamcinolone Acetonide 0.1% Crm] 1 applic TOP BID 10/18/21 [History] atenoloL [Atenolol] 25 mg PO QPM 10/18/21 [History] fluorouraciL [Fluorouracil] 1 applic TOP BID 10/18/21 [History] Past Medical History HEENT History: Reports: Cataract, Hard of Hearing, Impaired Vision, Macular Degeneration Cardiovascular History: Reports: Arrhythmia, Hypertension, SOB on Exertion, Other (See Below) Other Cardiovascular History: sinus arrhythmia Respiratory History: Reports: Sleep Apnea, SOB Gastrointestinal History: Reports: Colon Polyp, GERD Genitourinary History: Reports: Prostate Disorder, Renal Calculus Musculoskeletal History: Reports: Other (See Below) Other Musculoskeletal History: s/p L knee 10/14/17. 2 lumps in left knee Neurological History: Reports: Concussion Psychiatric History: Reports: None Endocrine/Metabolic History: Reports: Hypothyroidism, Obesity/BMI 30+, Other (See Below) Other Endocrine/Metabolic History: parathyroid and thyroid surgery Hematologic History: Reports: None Immunologic History: Reports: None Oncologic (Cancer) History: Reports: Basal Cell Carcinoma Dermatologic History: Reports: Other (See Below) Other Dermatologic History: rosacea - Infectious Disease History Infectious Disease History: Reports: Chicken Pox, Measles, Mumps - Past Surgical History Head Surgeries/Procedures: Reports: None HEENT Surgical History: Reports: Adenoidectomy, Cataract Surgery, Tonsillectomy Cardiovascular Surgical History: Reports: None Respiratory Surgical History: Reports: None GI Surgical History: Reports: Colonoscopy Male Surgical History: Reports: Prostate Biopsy Endocrine Surgical History: Reports: Parathyroidectomy, Thyroidectomy Neurological Surgical History: Reports: Laminectomy, Lumbar Spine Musculoskeletal Surgical History: Reports: Arthroscopic Knee, Knee Replacement, Shoulder Surgery Other Musculoskeletal Surgeries/Procedures:: knee replacement x2 left knee Oncologic Surgical History: Reports: Other (See Below) Other Oncologic Surgeries/Procedures: skin biopsies Dermatological Surgical History: Reports: Skin Biopsy Social & Family History - Family History Family Medical History: No Pertinent Family History - Caffeine Use Caffeine Use: Reports: Soda Review of Systems - Review of Systems Review Of Systems: See Below Constitutional: Reports: No Symptoms Ears: Reports: No Symptoms Nose: Reports: No Symptoms Mouth/Throat: Reports: No Symptoms Respiratory: Reports: No Symptoms Cardiovascular: Reports: No Symptoms GI/Abdominal: Reports: No Symptoms Genitourinary: Reports: No Symptoms Musculoskeletal: Reports: Other (pain in left ankle) Skin: Reports: Other ( skin over the ankle looks quite red and is tender. ) ED EXAM, GENERAL - Physical Exam Exam: See Below Free Text/Narrative:: pt is here with a swollen painful left ankle. The skin looks quite red and is warm over the ankle. Exam Limited By: No Limitations General Appearance: Alert Extremities: Other ( ankle is swollen. The skin is warm and looks quite red. He did slip under a car yesterday. ) Course - Vital Signs Last Recorded V/S: Last Vital Signs Temp 36.8 C 11/01/21 12:27 Pulse 85 11/01/21 12:27 Resp 15 11/01/21 12:27 BP 111/58 L 11/01/21 12:27 Pulse Ox 99 11/01/21 12:23 - Re-Assessments/Exams Free Text/Narrative Re-Assessment/Exam: 11/01/21 13:51 xray shows much degenerative changes, no fractures seen. Departure - Departure Time of Disposition: 13:42 Disposition: Home, Self-Care 01 Condition: Fair Clinical Impression: Left ankle sprain, Cellulitis - Discharge Information Referrals: Payal Aparicio MD [Primary Care Provider] - Forms: ED Department Discharge Care Plan Goals: elvate, wrap with a paty, cam walker, elevate and cool pack with minimal weight bearing, keflex 500mg tid for cellulitis Sepsis Event Note (ED) - Focused Exam Vital Signs: Vital Signs Temp Pulse Resp BP Pulse Ox 11/01/21 12:27 36.8 C 85 15 111/58 L 11/01/21 12:23 36.8 C 85 15 111/58 L 99
--- NOTE | 2021-11-01 13:32 | CR ---
Ankle Min 3V Lt CLINICAL HISTORY: Injury FINDINGS: The soft tissues are moderately swollen. No acute fracture or dislocation is noted. Ankle mortise is intact. There is some moderate soft tissue calcification near the lateral malleolus. There is also calcification in the plantar fascia. There is a large calcaneal spur. Patient is moderate pes planus and some osteoarthritic change in the tarsal junctions. IMPRESSION: Moderate soft tissue swelling likely related to 3 minutes injury. No fracture seen Ossification and some of the medial tendons and the plantar fascia Pes planus
--- NOTE | 2021-11-01 13:33 | CR ---
Foot Comp Min 3V Lt CLINICAL HISTORY: Pain, injury FINDINGS: There is no acute fracture or dislocation within the foot. No destructive changes are present. There is some soft tissue calcification medially which is likely within the ligaments. There is also calcified plantar fascia. There is large calcaneal spur. Pes planus. Osteophytic change IMPRESSION: No acute bony process.
== END 2021-11-01 14:12 | disposition home or self-care (01) ==
LOC: JP.ED 12:03
DX: S93.402A Sprain of unspecified ligament of left ankle, initial encounter (principal); L03.116 Cellulitis of left lower limb; I10 Essential (primary) hypertension; K21.9 Gastro-esophageal reflux disease without esophagitis; E03.9 Hypothyroidism, unspecified; E66.9 Obesity, unspecified; Z68.33 Body mass index [BMI] 33.0-33.9, adult; Z88.6 Allergy status to analgesic agent; Z88.8 Allergy status to other drugs, medicaments and biological substances; Z88.5 Allergy status to narcotic agent; Z88.0 Allergy status to penicillin; Z79.82 Long term (current) use of aspirin; Z79.899 Other long term (current) drug therapy; X50.1XXA Overexertion from prolonged static or awkward postures, initial encounter; Y92.481 Parking lot as the place of occurrence of the external cause
CPT/HCPCS: 73610-26-LT; 73610-LT; 73630-26-LT; 73630-LT; 99283-25

== ENCOUNTER 2021-11-19 06:34 | Day surgery (SDC) | payer MEDICAID, OTHER ==
[2021-11-19] MEDS ORDERED: Lidocaine 1% with EPINEPHrine 1:100,000 50 ML MDV ONE (06:49)
[2021-11-19] MEDS ORDERED: Bupivacaine 0.5% 50 ML MDV ONE (06:49)
[2021-11-19] MEDS ORDERED: Acetaminophen 500 MG Tab PO ONE (07:15)
[2021-11-19] MEDS ORDERED: fentaNYL 100 MCG/2 ML SDV ONE (07:24)
[2021-11-19] MEDS ORDERED: Propofol 200 MG/20 ML SDV ONE (07:24)
[2021-11-19] MEDS ORDERED: Midazolam 1 MG/ML 2 ML SDV ONE (07:24)
[2021-11-19] MEDS ORDERED: Dextrose 5%-Lactated Ringers 1,000 ML IV SCH (07:30)
[2021-11-19] MEDS ORDERED: Linezolid 600 MG in Premix Bag 1 BAG IV ONE (08:15)
[2021-11-19 10:45] VITALS: BP 123/73; PULSE 77
--- NOTE | 2021-11-21 11:21 | OR ---
DATE OF PROCEDURE: 11/19/2021 SURGEON: Nelson Schilling MD PREOPERATIVE DIAGNOSIS: Indication for central venous access. POSTOPERATIVE DIAGNOSIS: Indication for central venous access. PROCEDURE PERFORMED: Insertion of Bard port via right subclavian vein approach ([id number]). ANESTHESIA: Local plus IV sedation. PICK AND SHOVEL WORKER: MIROSLAVA Tobin INDICATIONS FOR PROCEDURE: This is an 81-year-old recently diagnosed with a lymphoma and will require central venous access for upcoming chemotherapy. Potential risks including bleeding, infection, injury to the lung or vasculature, and problems with the port becoming infected or occluded were all reviewed, and the patient wishes to proceed. DETAILS OF PROCEDURE: The patient was taken to the operating room and placed in a supine position. After IV sedation was administered, the upper chest and neck areas were prepped and draped. The patient had a mass over the left infraclavicular area. Therefore, the right side was used. The area below the clavicle was anesthetized with 1% lidocaine mixed with Marcaine, the subclavian vein cannulated, and a guidewire passed and manipulated into the superior vena cava. Some additional local was then injected. A transverse incision was made and carried down through the skin, subcutaneous tissue, and through the pectoralis major fascia. Behind the fascia, then a port pouch was constructed bluntly. The Bard port was then assembled, flushed with heparinized saline, and placed in the pocket. The catheter was cut such that the tip would be in the junction of the superior vena cava and right atrium. Over the introducer and peel-away catheter, the Bard port catheter was then placed, and good positioning was confirmed fluoroscopically. The incision was closed with 3-0 and 4- 0 Vicryl stitch deep and a 5-0 Vicryl subcuticular stitch. The port at that point was then aspirated, and good blood return was noted, and was once again flushed with heparinized saline. Steri-Strips were applied. The patient was taken to the recovery room in satisfactory condition. There were no evident complications. Nelson Schilling MD /[id number]
== END 2021-11-19 10:35 | disposition home or self-care (01) ==
LOC: JP.SDS 06:34
PROVIDERS: ATTEND Surgery
DX: C83.30 Diffuse large B-cell lymphoma, unspecified site (principal); G47.33 Obstructive sleep apnea (adult) (pediatric); I10 Essential (primary) hypertension; K21.9 Gastro-esophageal reflux disease without esophagitis; G62.9 Polyneuropathy, unspecified; N18.9 Chronic kidney disease, unspecified; E21.3 Hyperparathyroidism, unspecified
CPT/HCPCS: 36561; C1788; J1642; J2020; J2250; J2704; J3010; J3490; J7121